=== PATIENT | male | born 1975 | race Caucasian/White ===

== ENCOUNTER → 2016-09-02 | Outpatient (REF) | payer BC | LOC: M LAB REF 19:52 | PROVIDERS: ATTEND Physician Assistant | DX: M71.122 Other infective bursitis, left elbow (principal) ==

== ENCOUNTER → 2019-04-18 | Outpatient (CLI) | payer BC, OTHER ==
--- NOTE | 2019-04-20 19:47 | SLEEPCENT ---
DATE OF PROCEDURE: 04/18/2019 ORDERED BY: KEISHA Abbott Nocturnal polysomnography was performed for evaluation of sleep physiology in this patient with a history of excessive somnolence and nonrestorative sleep. 7 hours and 51 minutes of data were reviewed. There were 331 minutes of sleep identified. Sleep latency was prolonged at 26.5 minutes. Rapid eye movement (REM) latency was delayed at 378 minutes. Sleep architecture improved late in the study after interventions were made. Overall sleep efficiency 71.1%. The electrocardiogram showed a sinus rhythm with an average heart rate of 70 beats per minute. EEG showed normal waveforms for awake and sleep. There were 195 respiratory events identified 10 seconds in duration or greater for an apnea-hypopnea index of 35.3. Having clearly established the presence of obstructive sleep apnea syndrome early in the test, study was stopped at midnight for the application of pressure therapy. The patient was fit with a ResMed Air Fit F20 full face mask of large size, 4 cm of water pressure were applied to the circuit and the lights were extinguished. Throughout the remaining hours of testing, pressure titration was performed to an optimal pressure of +10. Limb activity was also noted in the EMG leads. However, this improved after pressure titration was performed. Limb movement arousal index was 4.2. IMPRESSION: Obstructive sleep apnea syndrome (G47.33). Apnea-hypopnea index 35.3. RECOMMENDATIONS: Nightly use of pressure therapy 10 cm of water.
== END ==
LOC: M SLEEP 20:00
PROVIDERS: ATTEND Nurse Practitioner Family
DX: G47.33 Obstructive sleep apnea (adult) (pediatric) (principal)

== ENCOUNTER → 2019-12-16 | Outpatient (CLI) | payer OTHER ==
--- NOTE | 2019-12-16 16:30 | REP ---
INDICATION: IMPINGMENT SYNDROME OF R . COMPARISON: None. TECHNIQUE: Coronal oblique T1, T2 fat sat, sagittal oblique T2 fat sat, axial T2 fat sat, gradient echo. FINDINGS: Rotator cuff: Scattered ill-defined high signal on T2 weighted images in the supraspinatus tendon is compatible with diffuse tendinopathy/tendinitis. There is a focal full-thickness partial tear at the anterior leading edge of the distal supraspinatus tendon. Acromioclavicular joint: There are moderate hypertrophic degenerative changes with a tiny amount of fluid in the joint. A couple of small subcortical cysts are seen in the distal end of the clavicle. Acromion: Type 2 Biceps Tendon: In bicipital groove, no tenosynovitis. Hill Sach's deformity: None. Deltoid muscle: No abnormal signal. Biceps labral complex: Mild fraying. Labrum: No tear visualized. Cartilage: No defects visualized. Bone marrow: No marrow edema. Joint fluid: No effusion. There is a tiny amount of fluid in the subacromial/ subdeltoid bursae. IMPRESSION: Supraspinatus tendinopathy/tendinitis with a focal full-thickness partial tear at the anterior leading edge of the distal supraspinatus tendon. Moderate hypertrophic degenerative changes acromioclavicular joint. Type 2 acromion. Mild fraying of the biceps labral complex. No definite labral tear. <Electronically signed by Kofi Dumont > 12/16/19 0410
--- NOTE | 2019-12-16 16:37 | REP ---
INDICATION: IMPINGMENT SYNDROME OF R . COMPARISON: None. TECHNIQUE: Coronal oblique T1, T2 fat sat, sagittal oblique T2 fat sat, axial T2 fat sat, gradient echo. FINDINGS: Rotator cuff: Scattered ill-defined high signal on T2 weighted images in the supraspinatus and subscapularis tendons compatible with tendinopathy/tendinitis. There is a full-thickness partial tear at the anterior leading edge of the distal supraspinatus tendon. There also appears to be a partial bursal surface tear of the supraspinatus tendon beneath the acromion. Acromioclavicular joint: There are moderate hypertrophic degenerative changes with tiny amount of fluid in the joint. There is moderate subacromial spurring. Acromion: Type 2 Biceps Tendon: In bicipital groove, no tenosynovitis. Hill Sach's deformity: None. Deltoid muscle: No abnormal signal. Biceps labral complex: Mild fraying Labrum: No tear visualized. Cartilage: No defects visualized. Bone marrow: No bone marrow edema visualized. There are few tiny subcortical cysts in the superolateral humeral head. Joint fluid: No effusion. There is mild to moderate fluid in the subacromial/subdeltoid bursae. IMPRESSION: Supraspinatus and subscapularis tendinopathy/tendinitis. Full-thickness partial tear anterior leading edge of the distal supraspinatus tendon. Partial bursal surface tear supraspinatus tendon. Moderate hypertrophic degenerative changes of the acromioclavicular joint. Type 2 acromion. Mild fraying of the biceps labral complex. No evidence of a labral tear. Mild to moderate fluid in the subacromial/subdeltoid bursae. <Electronically signed by Kofi Dumont > 12/16/19 [id number]
== END ==
LOC: M RAD 14:49
PROVIDERS: ATTEND Orthopaedic Surgery Sports Medicine
DX: M75.41 Impingement syndrome of right shoulder (principal)

== ENCOUNTER → 2020-06-14 | Outpatient (REF) | payer OTHER | LOC: M LAB REF 17:12 | PROVIDERS: ATTEND Family Medicine | DX: B35.3 Tinea pedis (principal) ==

== ENCOUNTER → 2020-06-20 | Outpatient (CLI) | payer OTHER ==
[~2020-06-20] MED LIST: ISOVUE-370 76% 100ML VIAL As Ordered ONE
--- NOTE | 2020-06-20 11:20 | REPVR ---
PROCEDURE INFORMATION: Exam: CT Maxillofacial With Contrast Exam date and time: 06/20/2020 10:57 AM Age: 45 years old Clinical indication: Jaw pain; Additional info: RT jaw pain post extraction, eval for abcess/osteo TECHNIQUE: Imaging protocol: Computed tomography images of the face with intravenous contrast. Radiation optimization: All CT scans at this facility use at least one of these dose optimization techniques: automated exposure control; mA and/or kV adjustment per patient size (includes targeted exams where dose is matched to clinical indication); or iterative reconstruction. Contrast material: ISOVUE 370; Contrast volume: 75 ml; Contrast route: INTRAVENOUS (IV); COMPARISON: No relevant prior studies available. FINDINGS: Orbital cavity: Orbits are normal. Globes are unremarkable. Bones/joints: There are posterior mandibular resection sockets bilaterally. On the right, there is a focal nondisplaced fracture traversing the lateral margin of the posterior mandible at the resection site, with focal periosteal reaction. Paranasal sinuses: Normal. No air-fluid levels. Soft tissues: There is focal expansion of the right masseter muscle at the level of the extraction site, potentially postoperative in nature. Myositis is a consideration in the appropriate clinical setting. IMPRESSION: 1. Focal fracture along the lateral margin of the right mandibular resection socket. Underlying infection is a consideration. 2. Expansion of the right masseter muscle, potentially myositis. No drainable soft tissue fluid collection to suggest abscess. Electronically signed by: Marilee Chase On 06/20/2020 11:20:19 AM
== END ==
LOC: M RAD 10:31
PROVIDERS: ATTEND Physician Assistant
DX: S02.601A Fracture of unspecified part of body of right mandible, initial encounter for closed fracture (principal); X58.XXXA Exposure to other specified factors, initial encounter; Y92.9 Unspecified place or not applicable; Y99.9 Unspecified external cause status; R68.84 Jaw pain
CPT/HCPCS: 70487; Q9967

== ENCOUNTER → 2020-06-27 | Outpatient (REF) | payer OTHER ==
[2020-06-27 11:00] LABS: BASO # 0.1 10^3/uL (0.0-0.2); BASO % 0.7 % (0.0-1.0); EOS # 0.2 10^3/uL (0.0-0.5); EOS % 1.6 % (0.0-3.0); HEMATOCRIT 49.9 % (42.0-52.0); LYMPH # 4.1 10^3/uL (1.5-5.0); LYMPH % 27.6 % (24.0-44.0); MEAN CORPUSCULAR HEMOGLOBIN 29.6 pg (27.0-33.0); MEAN CORPUSCULAR HGB CONC 32.1 g/dl (32.0-36.5); MEAN CORPUSCULAR VOLUME 92.4 fl (80.0-96.0); MONO % 6.7 % (2.0-8.0); NEUTROPHILS # 9.2 10^3/uL (1.5-8.5); NEUTROPHILS % 62.6 % (36.0-66.0); PLATELET COUNT, AUTOMATED 324 10^3/uL (150-450); WHITE BLOOD COUNT 14.7 10^3/uL (4.0-10.0)
[2020-06-27 11:27] LABS: ALBUMIN 3.9 GM/DL (3.2-5.2); ALT/SGPT 38 U/L (12-78); BILIRUBIN,TOTAL 0.2 MG/DL (0.2-1.0); BLOOD UREA NITROGEN 23 MG/DL (7-18); CALCIUM LEVEL 8.8 MG/DL (8.5-10.1); CARBON DIOXIDE LEVEL 26 MEQ/L (21-32); CHLORIDE LEVEL 105 MEQ/L (98-107); CREATININE FOR GFR 0.91 MG/DL (0.70-1.30); GLOMERULAR FILTRATION RATE > 60.0 (>60); GLUCOSE, FASTING 95 MG/DL (70-100); POTASSIUM SERUM 4.4 MEQ/L (3.5-5.1); SODIUM LEVEL 140 MEQ/L (136-145); TOTAL PROTEIN 7.4 GM/DL (6.4-8.2)
[2020-06-27 11:32] LABS: ERYTHROCYTE SEDIMENTATION RATE 2 mm/hr (0-15)
== END ==
LOC: M SFHCPLAZ 08:25
PROVIDERS: ATTEND Internal Medicine Infectious Disease
DX: M27.2 Inflammatory conditions of jaws (principal)

== ENCOUNTER 2020-07-03 14:27 | Outpatient (CLI) | payer OTHER ==
[2020-07-03] MEDS ORDERED: AMPICILLIN SOD/SULBACTAM SOD 3 GM in D5W MINI-BAG PLUS 100 ML IV ONE (14:30)
[2020-07-03 15:35] VITALS: BP 121/81
[2020-07-03] MEDS ORDERED: SODIUM CHLORIDE 0.9% INJ 10 ML SYR IV PRN (16:05)
[2020-07-03 16:40] VITALS: BP 133/81
[2020-07-03] MEDS ORDERED: SODIUM CHLORIDE 0.9% INJ 10 ML SYR IV SCH (18:00)
== END 2020-07-03 16:40 | disposition home or self-care (01) ==
LOC: M INFU 14:27
PROVIDERS: ATTEND Internal Medicine Infectious Disease
DX: M27.2 Inflammatory conditions of jaws (principal)
CPT/HCPCS: 96365; J1642

== ENCOUNTER → 2020-07-03 | Outpatient (CLI) | payer OTHER ==
[~2020-07-03] MED LIST changes: -ISOVUE-370 76% 100ML VIAL As Ordered ONE; +LIDOCAINE 1% MDV 20ML VIAL As Ordered ONE
[2020-07-03 15:18] VITALS: BP 144/70
--- NOTE | 2020-07-03 16:58 | REP ---
PROCEDURE NAME: PICC LINE INSERTION W/SITERITE CLINICAL INFORMATION: PICC LINES. COMPARISON: None. PROCEDURE DESCRIPTION: The procedure was performed by ROYCE Olson, under the direct supervision of Dr. Causey. The risks and benefits of the procedure were explained to the patient and an informed consent was obtained both verbally and written. Directly prior to the start of the procedure a formal time-out was completed in the procedure room. The left basilic vein was localized using ultrasound guidance. The skin was prepped and draped in sterile fashion. One mL of 1% lidocaine 10 mg/mL was used as a local anesthetic. Using ultrasound guidance the left basilic vein was cannulated, and a 0.018 guidewire was inserted and advanced to the level of SVC using fluoroscopic guidance. The needle was removed and a 4.5 Mongolian dilator and peel-away sheath was inserted over the guidewire. A 4.5 Mongolian single lumen catheter was cut to a length of 50 cm. The dilator was removed and the catheter was inserted over the guidewire with the tip ending at the level of the SVC. The peel-away sheath was removed and the catheter was flushed with heparinized saline as per hospital protocol. The catheter was affixed to the skin and a sterile dressing was applied. The patient tolerated the procedure well and there were no immediate complications. CONCLUSION: PICC line insertion into the left basilic vein. 0.1 minutes of fluoroscopy time was utilized for this procedure. Some fluoroscopic images are performed with last image hold technology. These images require no additional radiation. <Electronically signed by Helen Whalen > 07/03/20 1646 <Electronically signed by Cedric Causey > 07/03/20 3103
== END ==
LOC: M IRPRO 14:20
PROVIDERS: ATTEND Internal Medicine Infectious Disease
DX: M86.9 Osteomyelitis, unspecified (principal); M27.2 Inflammatory conditions of jaws
CPT/HCPCS: 36571; 76937; C1751; J1642; J1644

== ENCOUNTER → 2020-07-11 | Outpatient (REF) | payer OTHER ==
[2020-07-11 14:28] LABS: BASO # 0.1 10^3/uL (0.0-0.2); BASO % 0.6 % (0.0-1.0); EOS # 0.5 10^3/uL (0.0-0.5); EOS % 5.5 % (0.0-3.0); HEMATOCRIT 41.8 % (42.0-52.0); HEMOGLOBIN 13.5 g/dl (13.5-17.5); LYMPH # 2.3 10^3/uL (1.5-5.0); LYMPH % 24.2 % (24.0-44.0); MEAN CORPUSCULAR HEMOGLOBIN 29.9 pg (27.0-33.0); MEAN CORPUSCULAR HGB CONC 32.3 g/dl (32.0-36.5); MEAN CORPUSCULAR VOLUME 92.7 fl (80.0-96.0); MONO # 0.7 10^3/uL (0.0-0.8); NEUTROPHILS # 5.9 10^3/uL (1.5-8.5); NEUTROPHILS % 62.3 % (36.0-66.0); PLATELET COUNT, AUTOMATED 267 10^3/uL (150-450); RED BLOOD COUNT 4.51 10^6/uL (4.30-6.10); WHITE BLOOD COUNT 9.4 10^3/uL (4.0-10.0)
[2020-07-11 14:47] LABS: ERYTHROCYTE SEDIMENTATION RATE 10 mm/hr (0-15)
[2020-07-11 15:00] LABS: ALBUMIN 3.7 GM/DL (3.2-5.2); ALT/SGPT 33 U/L (12-78); BILIRUBIN,TOTAL 0.3 MG/DL (0.2-1.0); BLOOD UREA NITROGEN 20 MG/DL (7-18); C REACTIVE PROTEIN QUANTITATIV 0.46 MG/DL (0.00-0.30); CARBON DIOXIDE LEVEL 27 MEQ/L (21-32); CHLORIDE LEVEL 108 MEQ/L (98-107); CREATININE FOR GFR 0.83 MG/DL (0.70-1.30); GLOMERULAR FILTRATION RATE > 60.0 (>60); GLUCOSE, FASTING 112 MG/DL (70-100); SODIUM LEVEL 141 MEQ/L (136-145); TOTAL PROTEIN 6.6 GM/DL (6.4-8.2)
== END ==
LOC: M LAB REF 13:44
PROVIDERS: ATTEND Internal Medicine Infectious Disease
DX: M27.2 Inflammatory conditions of jaws (principal); A49.01 Methicillin susceptible Staphylococcus aureus infection, unspecified site

== ENCOUNTER → 2020-11-25 | Outpatient (CLI) | payer OTHER ==
[~2020-11-25] MED LIST changes: -LIDOCAINE 1% MDV 20ML VIAL As Ordered ONE; +PROP120C PO; +VENL150C43 PO
== END ==
LOC: M LABSMTC 09:11
PROVIDERS: ATTEND Anesthesiology
DX: Z11.52 Encounter for screening for COVID-19 (principal); Z20.822 Contact with and (suspected) exposure to COVID-19

== ENCOUNTER 2020-11-30 06:53 | Day surgery (SDC) | payer OTHER ==
[~2020-11-30] VITALS: Ht 180.3 cm; Wt 108.4 kg
[~2020-11-30 06:53] MED LIST changes: +NS 1,000 ML IV ONE
--- OUTSIDE RECORDS SUMMARY | 2020-11-30 06:56 | CCD | Continuity of Care Document ---
Author Author Manuel LOWERY Organization Unknown Address [address] [facility] [address] [place] [address] Phone [phone] Care Team Providers Care Director Of Pharmacy Name Role Phone Lilly Swain D.O. AUTM Diogo Blanchard DR. AUTM [phone] Warner Gilliland M.D. AUTM [phone] Carlito Skinner M.D. AUTM [phone] Problems Active Problems Provider Date Tremor PATRICK Ely Onset: 12/09/2019 Anxiety PATRICK Ely Onset: 12/09/2019 Tobacco user PATRICK Ely Onset: 12/09/2019 Social History Type Date Description Comments Sex Unknown ETOH Use Currently consumes alcohol 2x pe r week at most Tobacco Use Start: Unknown Heavy tobacco smoker (more than 10 cigarettes/day) 1 pack/day Recreational Drug Use Denies Drug Use Smoking Status Reviewed: 11/13/20 Heavy tobacco smoker (more than 10 cigarettes/day) 1 pack/day Sun Exposure Does not use sunscreen Seat Belt/Car Seat Never uses seat belt Allergies, Adverse Reactions, Alerts Active Allergies Criticality Reaction | Severity Comments Date Lyrica Unable to assess criticality 10/22/2019 Bupropion Unable to assess criticality Chest discomfort | Modera te 01/13/2020 Medications Active Medications SIG Qnty Indications Ordering Provide r Date Bilateral Shoe Orthotics. Dx: bilateral acquired flat feet. Use as directed. M21.40 Lilly Swain D.O. 11/13/2020 Chantix Starting Month Bhaskar 0.5mg X 11 & 1 mg X 42 Tablets 1 tab by mouth as directed 1pack F17.210 Aamir MichelOSulaiman 11/13/2020 Propranolol HCL ER 120mg Caps ER 2 4HR 1 by mouth every day 90caps Nickie Michel.O. Venlafaxine HCL ER 150mg Caps ER 2 4HR 1 by mouth every day 90caps Aamir MichelO. History Medications Nystatin 806751Oatm/ML Suspension 5 milliliters by mouth q6hr swish around mouth for 2 minutes and then swallow 473ml B37.0 Aamir MichelO. 08/22/2020 - 11/13/2020 Clobetasol Propionate E 0.05% Crea m apply to rash hands and feet leg twice daily for seven days as needed for flares 60gm L30.1 Aamir MichelO. 07/18/2020 - 11/13/2020 Prednisone 10mg Tablets 4 tablets daily for 5 days then 3 tablets for 3 days then 2 tablets for 2 days then 1 tab daily for 2 days, then stop qs L30.1 Aamir MichelO. 07/18/2020 - 08/22/2020 Hydrocodone-Acetaminophen 7.5-325mg Tablets 1 by mouth every 6 hours as needed for severe pain istop # 1 [id number] 28tabs K08.89 Aamir MichelO. 06/20/2020 - 07/18/2020 Gabapentin 300mg Capsules take one capsule by mouth three times daily as needed 60caps K08.89 Aamir DallasO. 06/20/2020 - 07/18/2020 Clotrimazole/Betamethasone Dipropionate 1-0.05% Cream apply to rash on the plantar aspect of r ight twice daily until resolved 45gm B35.3 Aamir MichelOSulaiman 06/14 - 11/13/2020 Doxycycline Monohydrate 100mg Caps ules 1 capsule by mouth twice a day for 10 days 20caps B35.3 Lilly Swain D.O. 06/14/2020 - 07/18/2020 Prednisone 20mg Tablets 1 tab by mouth daily x 5 days 5tabs B35.3 Lilly Swain D.O. 06/14 - 06/20/2020 Medications Administered in Office Medication SIG Qnty Indications Ordering Provider Date Injection Ketorolac Tromethamine Per 15 MG (Toradol) Injection PATRICK Loyola 06/20/2020 Immunizations Description No Information Available Vital Signs Date Vital Result Comment 11/13/2020 2:38pm BP Systolic 124 mmHg BP Diastolic 70 mmHg Height 70.2 inches 5'10.20" Weight 255.50 lb BMI (Body Mass Index) 36.4 kg/m2 Heart Rate 77 /min Respiratory Rate 14 /min Body Temperature 97.4 F O2 % BldC Oximetry 96 % [place] Body Weight 166 lb 08/22/2020 3:57pm BP Systolic 128 mmHg BP Diastolic 68 mmHg Height 70.2 inches 5'10.20" Weight 252.12 lb BMI (Body Mass Index) 36.0 kg/m2 Heart Rate 83 /min Respiratory Rate 14 /min Body Temperature 97.8 F O2 % BldC Oximetry 98 % [place] Body Weight 166 lb Results Test Acquired Date Facility Test Result H/L Range Note Laboratory test finding 06/14/[address] [id number] [phone] Wound Culture FULL REPORT IN L <SEE NOTE> Normal 1 1 FULL REPORT IN LAB NOTES ([facility] and [facility]). ORGANISM 1: STAPHYLOCOCCUS AUREUS QUANTITY OF GROWTH MODERATE ORGANISM 2: STAPHYLOCOCCUS SP COAG NEG QUANTITY OF GROWTH MODERATE ORGANISM 3: STAPHYLOCOCCUS CAPITIS QUANTITY OF GROWTH FEW ORGANISM 1: STAPHYLOCOCCUS AUREUS ORGANISM 2: STAPHYLOCOCCUS SP COAG NEG ORGANISM 3: STAPHYLOCOCCUS CAPITIS STAPHYLOCOCCUS AUREUS: REACTION ICR (INDUCIBLE CC RESISTANCE) IV ICR TEST RESULT TETRACYCLINE PO 250 mg qid <=1 S PENICILLIN G IV 1 mu q6H >=0.5 R PENICILLIN G IV 1 mu q6h >=0.5 R PENICILLIN G PO 250mg q6h fasting >=0.5 R TRIMETHOPRIM/SULFAMETHOXAZOLE IV 160mg TMP & 800mg SMXq6h <=10 S TRIMETHOPRIM/SULFAMETHOXAZOLE PO Bactrim DS Bid <=10 S ERYTHROMYCIN IV 500mg q6h <=0.25 S ERYTHROMYCIN PO 500mg q6h <=0.25 S GENTAMICIN IV 80mg q8h <=0.5 S CLINDAMYCIN IV 600mg q6h 0.25 S CLINDAMYCIN PO 150mg q6h 0.25 S NITROFURANTOIN PO 100mg BID <=16 S OXACILLIN IV 500mg q6h 1 S VANCOMYCIN IV 500mg q8h 1 S LINEZOLID (ZYVOX) IV 600MG Q12HR 2 S LINEZOLID (ZYVOX) PO 600MG Q12HR 2 S An isolate with a (+) POSITIVE ICR test is considered CLINDAMYCIN RESISTANT; however, clindamycin may still be effective in some patients. An isolate with a (-) NEGATIVE ICR test is considered CLIDAMYCIN SENSITIVE. Oxacillin result predicts susceptibility to all penicillinase-stable penicillins (Nafcillin, Dicloxacilin), Cephalosporins, Carbapenems, Amoxicillin/Clavulanate & Ampicillin/Sulbactam per CSLI standards. STAPHYLOCOCCUS SP COAG NEG: REACTION ICR (INDUCIBLE CC RESISTANCE) IV ICR TEST RESULT TETRACYCLINE PO 250 mg qid >=16 R PENICILLIN G IV 1 mu q6h <=0.03 R PENICILLIN G PO 250mg q6h fasting <=0.03 R TRIMETHOPRIM/SULFAMETHOXAZOLE IV 160mg TMP & 800mg SMXq6h <=10 S TRIMETHOPRIM/SULFAMETHOXAZOLE PO Bactrim DS Bid <=10 S ERYTHROMYCIN IV 500mg q6h >=8 R ERYTHROMYCIN PO 500mg q6h >=8 R GENTAMICIN IV 80mg q8h <=0.5 S CLINDAMYCIN IV 600mg q6h 0.25 S CLINDAMYCIN PO 150mg q6h 0.25 S NITROFURANTOIN PO 100mg BID <=16 S OXACILLIN IV 500mg q6h <=0.25 S VANCOMYCIN IV 500mg q8h 1 S LINEZOLID (ZYVOX) IV 600MG Q12HR 1 S LINEZOLID (ZYVOX) PO 600MG Q12HR 1 S An isolate with a (+) POSITIVE ICR test is considered CLINDAMYCIN RESISTANT; however, clindamycin may still be effective in some patients. An isolate with a (-) NEGATIVE ICR test is considered CLIDAMYCIN SENSITIVE. Oxacillin result predicts susceptibility to all penicillinase-stable penicillins (Nafcillin, Dicloxacilin), Cephalosporins, Carbapenems, Amoxicillin/Clavulanate & Ampicillin/Sulbactam per CSLI standards. STAPHYLOCOCCUS CAPITIS: REACTION ICR (INDUCIBLE CC RESISTANCE) IV ICR TEST RESULT TETRACYCLINE PO 250 mg qid >=16 R PENICILLIN G IV 1 mu q6h 0.25 R PENICILLIN G PO 250mg q6h fasting 0.25 R TRIMETHOPRIM/SULFAMETHOXAZOLE IV 160mg TMP & 800mg SMXq6h <=10 S TRIMETHOPRIM/SULFAMETHOXAZOLE PO Bactrim DS Bid <=10 S ERYTHROMYCIN IV 500mg q6h >=8 R ERYTHROMYCIN PO 500mg q6h >=8 R GENTAMICIN IV 80mg q8h <=0.5 S CLINDAMYCIN IV 600mg q6h <=0.12 I CLINDAMYCIN PO 150mg q6h <=0.12 I NITROFURANTOIN PO 100mg BID <=16 S OXACILLIN IV 500mg q6h <=0.25 S VANCOMYCIN IV 500mg q8h 1 S LINEZOLID (ZYVOX) IV 600MG Q12HR 4 S LINEZOLID (ZYVOX) PO 600MG Q12HR 4 S An isolate with a (+) POSITIVE ICR test is considered CLINDAMYCIN RESISTANT; however, clindamycin may still be effective in some patients. An isolate with a (-) NEGATIVE ICR test is considered CLIDAMYCIN SENSITIVE. Oxacillin result predicts susceptibility to all penicillinase-stable penicillins (Nafcillin, Dicloxacilin), Cephalosporins, Carbapenems, Amoxicillin/Clavulanate & Ampicillin/Sulbactam per CSLI standards. Procedures Date Code Description Status 11/13/2020 00024 Smoking & Tobacco Ce ssation Counseling Visit Intermediate 3-10Min Completed 11/13/2020 76808 Office/Outpatient Established Lo w MDM 20-29 Min Completed 08/22/2020 48688 Preventive Visit Est 40-64 Yrs C ompleted 08/22/2020 78136 Office/Outpatient Established Lo w MDM 20-29 Min Completed 07/18/2020 14199 Office/Outpatient Established Mo d MDM 30-39 Min Completed 06/20/2020 55935 Office/Outpatient Established Mo d MDM 30-39 Min Completed 06/14/2020 36758 Office/Outpatient Established Mo d MDM 30-39 Min Completed Medical Devices Description No Information Available Encounters Type Date Location Provider Dx Diagnosis Office Visit 11/13/2020 2:40p [facility] PATRICK Ely F17.210 Nicotine dependence, cigaret dougie, uncomplicated M21.40 Flat foot [pes planus] (acqu ired), unspecified foot Office Visit 08/22/2020 4:00p [facility] Lilly Swain D.O. Z00.01 Encounter for general adult medical exam w abnormal findings F17.210 Nicotine dependence, cigaret dougie, uncomplicated G47.33 Obstructive sleep apnea (marija lt) (pediatric) G25.0 Essential tremor F41.1 Generalized anxiety disorder L40.9 Psoriasis, unspecified B37.0 Candidal stomatitis Z12.11 Encounter for screening for malignant neoplasm of colon Z80.0 Family history of malignant neoplasm of digestive organs Office Visit 07/18/2020 3:40p [facility] Lilly Swain D.O. M27.2 Inflammatory conditions of j kristie L30.1 Dyshidrosis [pompholyx] L84 Corns and callosities L23.89 Allergic contact dermatitis due to other agents Office Visit 06/20/2020 9:00a [facility] PATRICK Ely L03.115 Cellulitis of right lower li mb K08.89 Other specified disorders of teeth and supporting structures Office Visit 06/14/2020 2:30p [facility] Lilly Swain D.O. B35.3 Tinea pedis L40.9 Psoriasis, unspecified Assessments Date Code Description Provider 11/13/2020 F17.210 Nicotine dependence, cigarettes, uncomplicated PATRICK Ely 11/13/2020 M21.40 Flat foot [pes planus] (acquired ), unspecified foot PATRICK Ely 08/22/2020 Z00.01 Encounter for genera l adult medical examination with abnormal findings Lilly Swain D.O. 08/22/2020 F17.210 Nicotine dependence, cigarettes, uncomplicated Nickie Ovalle.OSulaiman 08/22/2020 G47.33 Obstructive sleep apnea (adult) (pediatric) Lilly Islas D.O. 08/22/2020 G25.0 Essential tremor Lilly ordonez, D.O. 08/22/2020 F41.1 Generalized anxiety disorder Judy l Wiliam, D.O. 08/22/2020 L40.9 Psoriasis, unspecified Lilly Callaway, D.O. 08/22/2020 B37.0 Candidal stomatitis Lilly Thompson, D.O. 08/22/2020 Z12.11 Encounter for screening for shea gnant neoplasm of colon Lilly Swain, D.O. 08/22/2020 Z80.0 Family history of malignant neop lasm of digestive organs Lilly Swain, D.O. 07/18/2020 M27.2 Inflammatory conditions of jaws Lilly Swain, D.O. 07/18/2020 L30.1 Dyshidrosis [pompholyx] Lilly Loza, D.O. 07/18/2020 L84 Corns and callosities Lilly Lame Salo, D.O. 07/18/2020 L23.89 Allergic contact dermatitis due to other agents Lilly Islas, D.O. 06/20/2020 L03.115 Cellulitis of right lower limb S PATRICK Townsend 06/20/2020 K08.89 Other specified disorders of kerry th and supporting structures PATRICK Ely 06/14/2020 B35.3 Tinea pedis Lilly noble, D.O. 06/14/2020 L40.9 Psoriasis, unspecified Lilly Callaway, D.O. Plan of Treatment Future Appointment(s):* 12/25/2020 2:20 pm - PATRICK Ely at [facility] * 02/22/2021 3:00 pm - PATRICK Ely at [facility] Functional Status Description No Information Available Mental Status Description No Information Available Referrals Refer to Reason for Referral Status Appt Date Carlito Skinner M.D. This is a 45 year old male w ith family history of colon cancer in his father was of metastatic disease at age 73. I think he would benefit from screening colonoscopy. Please evaluate and treat. Sent 09/06/2020 [address] [facility] [address] [place], [place] [id number] [phone] Warner Gilliland M.D. this is a 45 year old male w ith dyshydrosis and severe cracking with callus on the right foot. I do not think that this will heal without debridement and would appreciate your help with this patient. 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 Sent 08/22/2020 [facility] [address] [facility] [address] [place], [place] [id number] [phone]
--- OUTSIDE RECORDS SUMMARY | 2020-11-30 06:56 | CCD | Continuity of Care Document ---
Author Author Manuel LOWERY Organization Unknown Address [address] [facility], [place], [facility] [address] [place] [address] Phone [phone] Care Team Providers Care Business Development Director Name Role Phone Lilly Swain D.O. AUTM [phone] AUTM [phone] Warner Gilliland M.D. AUTM [phone] Carlito Skinner M.D. AUTM [phone] Problems Active Problems Provider Date Tremor PATRICK Ely Onset: 12/09/2019 Anxiety PATRICK Ely Onset: 12/09/2019 Tobacco user PATRICK Ely Onset: 12/09/2019 Social History Type Date Description Comments Sex Unknown ETOH Use Currently consumes alcohol 2x pe r week at most Tobacco Use Start: Unknown Heavy tobacco smoker (more than 10 cigarettes/day) 1 pack/day Recreational Drug Use Denies Drug Use Smoking Status Reviewed: 08/22/20 Heavy tobacco smoker (more than 10 cigarettes/day) [...] day 90caps Aamir MichelO. History Medications Nystatin 648334Wiot/ML Suspension 5 milliliters by mouth q6hr swish [...] needed for severe pain istop # 1 [id number] 28tabs K08.89 Aamir MichelO. 06/20/2020 - 07/18/2020 Gabapentin 300mg Capsules take one capsule by mouth three times daily as needed 60caps K08.89 Aamir DallasO. 06/20/2020 - 07/18/2020 Clotrimazole/Betamethasone Dipropionate 1-0.05% Cream apply to rash on the plantar aspect of r ight twice daily until resolved 45gm B35.3 Aamir MihcelOSulaiman 06/14 - 11/13/2020 Doxycycline Monohydrate 100mg Caps [...] F O2 % BldC Oximetry 96 % [place] Body Weight 166 lb 08/22/2020 3:57pm BP Systolic 128 mmHg BP Diastolic 68 mmHg Height 70.2 inches 5'10.20" Weight 252.12 lb BMI (Body Mass Index) 36.0 kg/m2 Heart Rate 83 /min Respiratory Rate 14 /min Body Temperature 97.8 F O2 % BldC Oximetry 98 % [place] Body Weight 166 lb Results Test Acquired Date Facility Test Result H/L Range Note Laboratory test finding 06/14/[address] [id number] [phone] Wound Culture FULL REPORT IN L <SEE [...] CSLI standards. Procedures Date Code Description Status 08/22/2020 78283 Preventive Visit Est 40-64 Yrs C ompleted 08/22/2020 01541 Office/Outpatient Established Lo w MDM 20-29 Min Completed 07/18/2020 46266 Office/Outpatient Established Mo d MDM 30-39 Min Completed 06/20/2020 76859 Office/Outpatient Established Mo d MDM 30-39 Min Completed 06/14/2020 89996 Office/Outpatient Established Mo d MDM 30-39 Min Completed Medical Devices Description No Information Available Encounters Type Date Location Provider Dx Diagnosis Office Visit 08/22/2020 4:00p [facility] Lilly Swain, D.O. Z00.01 Encounter for general adult medical exam w abnormal findings F17.210 Nicotine dependence, cigaret dougie, uncomplicated G47.33 Obstructive sleep apnea (marija lt) (pediatric) G25.0 Essential tremor F41.1 Generalized anxiety disorder L40.9 Psoriasis, unspecified B37.0 Candidal stomatitis Z12.11 Encounter for screening for malignant neoplasm of colon Z80.0 Family history of malignant neoplasm of digestive organs Office Visit 07/18/2020 3:40p [facility] Lilly Swain D.O. M27.2 Inflammatory conditions of j kristie L30.1 Dyshidrosis [pompholyx] L84 Corns and callosities L23.89 Allergic contact dermatitis due to other agents Office Visit 06/20/2020 9:00a [facility] PATRICK Ely L03.115 Cellulitis of right lower li mb K08.89 Other specified disorders of teeth and supporting structures Office Visit 06/14/2020 2:30p [facility] Lilly Swain, D.O. B35.3 Tinea pedis L40.9 Psoriasis, unspecified Assessments Date Code Description Provider 11/13/2020 F17.210 Nicotine dependence, cigarettes, uncomplicated PATRICK Ely 11/13/2020 M21.40 Flat foot [pes planus] (acquired ), unspecified foot PATRICK Ely 08/22/2020 Z00.01 Encounter for genera l adult medical examination with abnormal findings Lilly Swain, D.O. 08/22/2020 F17.210 Nicotine dependence, cigarettes, uncomplicated Lilly Islas, D.O. 08/22/2020 G47.33 Obstructive sleep apnea (adult) (pediatric) Lilly Islas D.O. 08/22/2020 G25.0 Essential tremor Lilly ordonez D.O. 08/22/2020 F41.1 Generalized anxiety disorder Judy leticia Swain D.O. 08/22/2020 L40.9 Psoriasis, unspecified Lilly Callaway D.O. 08/22/2020 B37.0 Candidal stomatitis Lilly Thompson D.O. 08/22/2020 Z12.11 Encounter for screening for shea gnant neoplasm of colon Lilly Swain D.O. 08/22/2020 Z80.0 Family history of malignant neop lasm of digestive organs Lilly Swain D.O. 07/18/2020 M27.2 Inflammatory conditions of jaws Lilly Swain D.O. 07/18/2020 L30.1 Dyshidrosis [pompholyx] Lilly Loza D.O. 07/18/2020 L84 Corns and callosities Lilly Leong D.O. 07/18/2020 L23.89 Allergic contact dermatitis due to other agents Lilly Islas D.O. 06/20/2020 L03.115 Cellulitis of right lower limb S PATRICK Townsend 06/20/2020 K08.89 Other specified disorders of kerry th and supporting structures PATRICK Ely 06/14/2020 B35.3 Tinea pedis Lilly noble D.O. 06/14/2020 L40.9 Psoriasis, unspecified Lilly Callaway, D.O. Plan of Treatment Future Appointment(s):* 12/25/2020 2:20 pm - PATRICK Ely at [facility] * 02/22/2021 3:00 pm - PATRICK lEy at [facility] 11/13/2020 - PATRICK Ely* F17.210 Nicotine dependence, cigarettes, uncomplicated* New Medication:* Chantix Starting Month Bhaskar 0.5 mg X 11 & 1 mg X 42 - 1 tab by mouth as directed * Comments:* We will try chantix to help you quit smoking. Call if there is any issue with the medication, or other concerns. * Follow up:* 6 weeks with me. * M21.40 Flat foot [pes planus] (acquired), unspecified foot* New Medication:* Bilateral Shoe Orthotics. - Dx: bilateral acquired flat feet. Use as directed. * Comments:* We will write you a prescription for orthotics. Call if there is any issue with the prescription, or other issues. Functional Status Description No Information Available Mental Status Description No Information Available Referrals Refer to Reason for Referral Status Appt Date Carlito Skinner M.D. This is a 45 year old male w ith family history of colon cancer in his father was of metastatic disease at age 73. I think he would benefit from screening colonoscopy. Please evaluate and treat. Sent 09/06/2020 [address] [facility] [address] [place] [address] [phone] Warner Gilliland M.D. this is a 45 [...] has improved. Sent 08/22/2020 [facility] [address] [facility] [address] [place], [place] [id number] [phone]
--- OUTSIDE RECORDS SUMMARY | 2020-11-30 06:57 | CCD | Continuity of Care Document ---
Author Author Manuel JOHNSON OR Organization Unknown Address [address] [facility], [address] [place] [address] Phone [phone] Care Team Providers Care Efficiency Clerk Name Role Phone AUTM Unavailable Lilly Swain D.O. AUTM AUTM Unavailable Problems Description No Information Available Social History Type Date Description Comments Sex Unknown ETOH Use Rarely consumes alcohol Tobacco Use Start: 02/10/99 Patient is a current smoker, smo kes every day 1 PPD Recreational Drug Use Denies Drug Use Smoking Status Reviewed: 10/28/19 Patient is a current smoker, smokes every day 1 PPD Allergies, Adverse Reactions, Alerts Description No Known Drug Allergies Medications Active Medications SIG Qnty Indications Ordering Provide r Date CPAP Device 10cm - Mehul Knight MD 04/29/2019 Venlafaxine HCL ER 150mg Caps ER 2 4HR 1 tab by mouth every day Unknown 0 Propranolol HCL ER 120mg Caps ER 2 4HR 1 tab by mouth every day Unknown 0 Acitretin 25mg Capsules One C ap daily Unknown Immunizations Description No Information Available Vital Signs Date Vital Result Comment 09/06/2020 1:03pm BP Systolic 128 mmHg BP Diastolic 86 mmHg Body Temperature 98.4 F Height 72 inches 6'0" Weight 250.06 lb BMI (Body Mass Index) 33.9 kg/m2 [place] Body Weight 178 lb Weight 113.428 kg BSA (Body Surface Area) 2.34 m2 02/22/2020 3:30pm Body Temperature 97.1 F Height 72 inches 6'0" Weight 253.00 lb BMI (Body Mass Index) 34.3 kg/m2 [place] Body Weight 178 lb Weight 114.761 kg BSA (Body Surface Area) 2.35 m2 Results Description No Information Available Procedures Description No Information Available Medical Devices Description No Information Available Encounters Description No Information Available Assessments Description No Information Available Plan of Treatment Future Appointment(s):* 10/30/2020 3:45 pm - Vanessa Vickers N.PSulaiman at [facility] Pulmonary/Thoracic Functional Status Functional Condition Comment Date Status Independent with all ADL's Activ e Independent with all IADL's Acti ve Mental Status Mental Condition Comment Date Status None Active Can understand information Activ e Referrals Refer to Reason for Referral Status Appt Date Carlito Skinner M.D. Scheduled 09/06/2020 [facility] [address] [place] [address] [phone]
--- OUTSIDE RECORDS SUMMARY | 2020-11-30 06:57 | CCD ---
Author Author [facility] Organization [facility] Address Unknown Phone Unavailable Care Team Providers Care Finger Lift Operator Name Role Phone Caryn Taylor Unavailable PROBLEMS ALLERGIES No Known Allergies ENCOUNTERS from 1975 to 2020-09-11 IMMUNIZATIONS No Information SOCIAL HISTORY No smoking Hx information available REASON FOR REFERRAL No Information VITAL SIGNS MEDICATIONS PROCEDURES No Information RESULTS No Results REASON FOR VISIT MEDICAL (GENERAL) HISTORY Goals Section Health Concerns MEDICAL EQUIPMENT No Information MENTAL STATUS FUNCTIONAL STATUS ASSESSMENTS PLAN OF TREATMENT Insurance Providers
--- OUTSIDE RECORDS SUMMARY | 2020-11-30 06:57 | CCD ---
Author Author [facility] Organization [facility] Address Unknown Phone Unavailable Care Team Providers Care Fire Control Mechanic Name Role Phone Karen Aragon MD Unavailable Unavailable Karen Aragon MD Unavailable Unavailable Karen Aragon MD Unavailable Unavailable Karen Aragon MD Unavailable Unavailable Karen Aragon MD Unavailable Unavailable Karen Aragon MD Unavailable Unavailable Karen Aragon MD Unavailable Unavailable Karen Aragon MD Unavailable Unavailable Karen Aragon MD Unavailable Unavailable Karen Aragon MD Unavailable Unavailable Karen Aragon MD Unavailable Unavailable Karen Aragon MD Unavailable Unavailable Karen Aragon MD Unavailable Unavailable Karen Aragon MD Unavailable Unavailable Karen Aragon MD Unavailable Unavailable Karen Aragon MD Unavailable Unavailable Mollison, Karen Camacho MD Unavailable Unavailable Mollison, W Doug BOONE Unavailable Unavailable Mollison, W Doug BOONE Unavailable Unavailable Mollison, W Doug BOONE Unavailable Unavailable Mollison, W Doug BOONE Unavailable Unavailable Mollison, W Doug BOONE Unavailable Unavailable Mollison, W Doug BOONE Unavailable Unavailable Mollison, Karen Camacho MD Unavailable Unavailable Mollison, Karen Camacho MD Unavailable Unavailable Mollison, W Doug BOONE Unavailable Unavailable Mollison, W Doug BOONE Unavailable Unavailable Mollison, W Doug BOONE Unavailable Unavailable Mollison, W Doug BOONE Unavailable Unavailable Mollison, W Doug BOONE Unavailable Unavailable Anuel, Edmond PA Unavailable Unavailable Anuel, Edmond PA Unavailable Unavailable Anuel, Edmond PA Unavailable Unavailable Nauel, Edmond PA Unavailable Unavailable Anuel, Edmond PA Unavailable Unavailable Anuel, Edmond PA Unavailable Unavailable Anuel, Edmond PA Unavailable Unavailable Anuel, Edmond PA Unavailable Unavailable Anuel, Edmond PA Unavailable Unavailable Anuel, Edmond PA Unavailable Unavailable Anuel, Edmond PA Unavailable Unavailable Anuel, Edmond PA Unavailable Unavailable Anuel, Edmond PA Unavailable Unavailable Anuel, Edmond PA Unavailable Unavailable Anuel, Edmond PA Unavailable Unavailable Anuel, Edmond PA Unavailable Unavailable Anuel, Edmond PA Unavailable Unavailable Anuel, Edmond PA Unavailable Unavailable Anuel, Edmond PA Unavailable Unavailable Anuel, Edmond PA Unavailable Unavailable Anuel, Edmond PA Unavailable Unavailable Anuel, Edmond PA Unavailable Unavailable Anuel, Edmond PA Unavailable Unavailable Anuel, Edmond PA Unavailable Unavailable Anuel, Edmond PA Unavailable Unavailable Anuel, Edmond PA Unavailable Unavailable Anuel, Edmond PA Unavailable Unavailable Anuel, Edmond PA Unavailable Unavailable Anuel, Edmond PA Unavailable Unavailable Anuel, Edmond PA Unavailable Unavailable Anuel, Edmond PA Unavailable Unavailable Anuel, Edmond PA Unavailable Unavailable Anuel, Edmond PA Unavailable Unavailable Anuel, Edmond PA Unavailable Unavailable Anuel, Edmond PA Unavailable Unavailable Anuel, Edmond PA Unavailable Unavailable Anuel, Edmond PA Unavailable Unavailable Anuel, Edmond PA Unavailable Unavailable Anuel, Edmond PA Unavailable Unavailable Anuel, Edmond PA Unavailable Unavailable Anuel, Edmond PA Unavailable Unavailable Anuel, Edmond PA Unavailable Unavailable Anuel, Edmond PA Unavailable Unavailable Anuel, Edmond PA Unavailable Unavailable Anuel, Edmond PA Unavailable Unavailable Anuel, Edmond PA Unavailable Unavailable Anuel, Edmond PA Unavailable Unavailable Anuel, Edmond PA Unavailable Unavailable Anuel, Edmond PA Unavailable Unavailable Anuel, Edmond PA Unavailable Unavailable Anuel, Edmond PA Unavailable Unavailable Anuel, Edmond PA Unavailable Unavailable Anuel, Edmond PA Unavailable Unavailable Anuel, Edmond PA Unavailable Unavailable TIM-NIALL, AGUSTIN DO Unavailable Unavailable TIM-NIALL, AGUSTIN DO Unavailable Unavailable TIM-NIALL, AGUSTIN DO Unavailable Unavailable TIM-NIALL, AGUSTIN DO Unavailable Unavailable TIM-NIALL, AGUSTIN DO Unavailable Unavailable TIM-NIALL, AGUSTIN DO Unavailable Unavailable TIM-NIALL, AGUSTIN DO Unavailable Unavailable TIM-NIALL, AGUSTIN DO Unavailable Unavailable TIM-NIALL, AGUSTIN DO Unavailable Unavailable TIM-NIALL, AGUSTIN DO Unavailable Unavailable TIM-NIALL, AGUSTIN DO Unavailable Unavailable TIM-NIALL, AGUSTIN DO Unavailable Unavailable TIM-NIALL, AGUSTIN DO Unavailable Unavailable TIM-NIALL, AGUSTIN DO Unavailable Unavailable TIM-NIALL, AGUSTIN DO Unavailable Unavailable TIM-NIALL, AGUSTIN DO Unavailable Unavailable TIM-NIALL, AGUSTIN DO Unavailable Unavailable TIM-NIALL, AGUSTIN DO Unavailable Unavailable TIM-NIALL, AGUSTIN DO Unavailable Unavailable TIM-NIALL, AGUSTIN DO Unavailable Unavailable TIM-NIALL, AGUSTIN DO Unavailable Unavailable TIM-NIALL, AGUSTIN DO Unavailable Unavailable TIM-NIALL, AGUSTIN DO Unavailable Unavailable TIM-NIALL, AGUSTIN DO Unavailable Unavailable TIM-NIALL, AGUSTIN DO Unavailable Unavailable TIM-NIALL, AGUSTIN DO Unavailable Unavailable TIM-NIALL, AGUSTIN DO Unavailable Unavailable TIM-NIALL, AGUSTIN DO Unavailable Unavailable TIM-NIALL, AGUSTIN DO Unavailable Unavailable TIM-NIALL, AGUSTIN DO Unavailable Unavailable TIM-NIALL, AGUSTIN DO Unavailable Unavailable TIM-NIALL, AGUSTIN DO Unavailable Unavailable TIM-NIALL, AGUSTIN DO Unavailable Unavailable TIM-NIALL, AGUSTIN DO Unavailable Unavailable TIM-NIALL, AGUSTIN DO Unavailable Unavailable TIM-NIALL, AGUSTIN DO Unavailable Unavailable TIM-NIALL, AGUSTIN DO Unavailable Unavailable TIM-NIALL, AGUSTIN DO Unavailable Unavailable TIM-NIALL, AGUSTIN DO Unavailable Unavailable TIM-NIALL, AGUSTIN DO Unavailable Unavailable TIM-NIALL, AGUSTIN DO Unavailable Unavailable TIM-NIALL, AGUSTIN DO Unavailable Unavailable TIM-NIALL, AGUSTIN DO Unavailable Unavailable TIM-NIALL, AGUSTIN DO Unavailable Unavailable TIM-NIALL, AGUSTIN DO Unavailable Unavailable TIM-NIALL, AGUSTIN DO Unavailable Unavailable TIM-NIALL, AGUSTIN DO Unavailable Unavailable TIM-NIALL, AGUSTIN DO Unavailable Unavailable TIM-NIALL, AGUSTIN DO Unavailable Unavailable TIM-NIALL, AGUSTIN DO Unavailable Unavailable TIM-NIALL, AGUSTIN DO Unavailable Unavailable TIM-NIALL, AGUSTIN DO Unavailable Unavailable TIM-NIALL, AGUSTIN DO Unavailable Unavailable TIM-NIALL, AGUSTIN DO Unavailable Unavailable TIM-NIALL, AGUSTIN DO Unavailable Unavailable TIM-NIALL, AGUSTIN DO Unavailable Unavailable TIM-NIALL, AGUSTIN DO Unavailable Unavailable TIM-NIALL, AGUSTIN DO Unavailable Unavailable TIM-NIALL, AGUSTIN DO Unavailable Unavailable TIM-NIALL, AGUSTIN DO Unavailable Unavailable TIM-NIALL, AGUSTIN DO Unavailable Unavailable TIM-NIALL, AGUSTIN DO Unavailable Unavailable TIM-NIALL, AGUSTIN DO Unavailable Unavailable TIM-NIALL, AGUSTIN DO Unavailable Unavailable TIM-NIALL, AGUSTIN DO Unavailable Unavailable TIM-NIALL, AGUSTIN DO Unavailable Unavailable TIM-NIALL, AGUSTIN DO Unavailable Unavailable TIM-NIALL, AGUSTIN DO Unavailable Unavailable TIM-NIALL, AGUSTIN DO Unavailable Unavailable TIM-NIALL, AGUSTIN DO Unavailable Unavailable TIM-NIALL, AGUSTIN DO Unavailable Unavailable TIM-NIALL, AGUSTIN DO Unavailable Unavailable TIM-NIALL, AGUSTIN DO Unavailable Unavailable TIM-NIALL, AGUSTIN DO Unavailable Unavailable TIM-NIALL, AGUSTIN DO Unavailable Unavailable TIM-NIALL, AGUSTIN DO Unavailable Unavailable TIM-NIALL, AGUSTIN DO Unavailable Unavailable TIM-NIALL, AGUSTIN DO Unavailable Unavailable TIM-NIALL, AGUSTIN DO Unavailable Unavailable TIM-NIALL, AGUSTIN DO Unavailable Unavailable TIM-NIALL, AGUSTIN DO Unavailable Unavailable TIM-NIALL, AGUSTIN DO Unavailable Unavailable TIM-NIALL, AGUSTIN DO Unavailable Unavailable TIM-NIALL, AGUSTIN DO Unavailable Unavailable Saravia, D Geni HAT PARTS CUTTER MACHINE-C Unavailable Unavailable Saravia, D Geni HAT PARTS CUTTER MACHINE-C Unavailable Unavailable Saravia, D Geni HAT PARTS CUTTER MACHINE-C Unavailable Unavailable Saravia, D Geni HAT PARTS CUTTER MACHINE-C Unavailable Unavailable Saravia, D Geni HAT PARTS CUTTER MACHINE-C Unavailable Unavailable Saravia, D Geni HAT PARTS CUTTER MACHINE-C Unavailable Unavailable Saravia, D Geni HAT PARTS CUTTER MACHINE-C Unavailable Unavailable MARK, RACHEL JEFF HAT PARTS CUTTER MACHINE-C Unavailable Unavailable MARK, RACHEL JEFF HAT PARTS CUTTER MACHINE-C Unavailable Unavailable MARK, RACHEL JEFF HAT PARTS CUTTER MACHINE-C Unavailable Unavailable MARK, RACHEL JEFF HAT PARTS CUTTER MACHINE-C Unavailable Unavailable MARK, RACHEL JEFF HAT PARTS CUTTER MACHINE-C Unavailable Unavailable MARK, RACHEL JEFF HAT PARTS CUTTER MACHINE-C Unavailable Unavailable MARK, RACHEL JEFF HAT PARTS CUTTER MACHINE-C Unavailable Unavailable MARK, RACHEL JEFF HAT PARTS CUTTER MACHINE-C Unavailable Unavailable MARK, RACHEL JEFF HAT PARTS CUTTER MACHINE-C Unavailable Unavailable MARK, RACHEL JEFF HAT PARTS CUTTER MACHINE-C Unavailable Unavailable MARK, RACHEL JEFF HAT PARTS CUTTER MACHINE-C Unavailable Unavailable MARK, RACHEL JEFF HAT PARTS CUTTER MACHINE-C Unavailable Unavailable MARK, RACHEL JEFF HAT PARTS CUTTER MACHINE-C Unavailable Unavailable MARK, RACHEL JEFF HAT PARTS CUTTER MACHINE-C Unavailable Unavailable MARK, RACHEL JEFF HAT PARTS CUTTER MACHINE-C Unavailable Unavailable MARK, RACHEL JEFF HAT PARTS CUTTER MACHINE-C Unavailable Unavailable MARK, RACHEL JEFF HAT PARTS CUTTER MACHINE-C Unavailable Unavailable Munising, Kemi HAT PARTS CUTTER MACHINE Unavailable Unavailable Munising, Kemi HAT PARTS CUTTER MACHINE Unavailable Unavailable Munising, Kemi HAT PARTS CUTTER MACHINE Unavailable Unavailable Munising, Kemi HAT PARTS CUTTER MACHINE Unavailable Unavailable Munising, Kemi HAT PARTS CUTTER MACHINE Unavailable Unavailable Munising, Kemi HAT PARTS CUTTER MACHINE Unavailable Unavailable Munising, Kemi HAT PARTS CUTTER MACHINE Unavailable Unavailable Munising, Kemi HAT PARTS CUTTER MACHINE Unavailable Unavailable Munising, Kemi HAT PARTS CUTTER MACHINE Unavailable Unavailable Munising, Kemi HAT PARTS CUTTER MACHINE Unavailable Unavailable Munising, Kemi HAT PARTS CUTTER MACHINE Unavailable Unavailable Munising, Kemi HAT PARTS CUTTER MACHINE Unavailable Unavailable Munising, Kemi HAT PARTS CUTTER MACHINE Unavailable Unavailable Munising, Kemi HAT PARTS CUTTER MACHINE Unavailable Unavailable Munising, Kemi HAT PARTS CUTTER MACHINE Unavailable Unavailable Munising, Kemi HAT PARTS CUTTER MACHINE Unavailable Unavailable Munising, Kemi HAT PARTS CUTTER MACHINE Unavailable Unavailable Munising, Kemi HAT PARTS CUTTER MACHINE Unavailable Unavailable Munising, Kemi HAT PARTS CUTTER MACHINE Unavailable Unavailable Munising, Kemi HAT PARTS CUTTER MACHINE Unavailable Unavailable Munising, Kemi HAT PARTS CUTTER MACHINE Unavailable Unavailable Munising, Kemi HAT PARTS CUTTER MACHINE Unavailable Unavailable Munising, Kemi HAT PARTS CUTTER MACHINE Unavailable Unavailable Munising, Kemi HAT PARTS CUTTER MACHINE Unavailable Unavailable Munising, Kemi HAT PARTS CUTTER MACHINE Unavailable Unavailable Munising, Kemi HAT PARTS CUTTER MACHINE Unavailable Unavailable Munising, Kemi HAT PARTS CUTTER MACHINE Unavailable Unavailable Munising, Kemi HAT PARTS CUTTER MACHINE Unavailable Unavailable Munising, Kemi HAT PARTS CUTTER MACHINE Unavailable Unavailable Munising, Kemi HAT PARTS CUTTER MACHINE Unavailable Unavailable Munising, Kemi HAT PARTS CUTTER MACHINE Unavailable Unavailable Munising, Kemi HAT PARTS CUTTER MACHINE Unavailable Unavailable Munising, Kemi HAT PARTS CUTTER MACHINE Unavailable Unavailable Munising, Kemi HAT PARTS CUTTER MACHINE Unavailable Unavailable Munising, Kemi HAT PARTS CUTTER MACHINE Unavailable Unavailable Munising, Kemi HAT PARTS CUTTER MACHINE Unavailable Unavailable Archer, L Melina RPA Unavailable Unavailable Archer, L Melina RPA Unavailable Unavailable Archer, L Melina RPA Unavailable Unavailable Archer, L Melina RPA Unavailable Unavailable Archer, L Melina RPA Unavailable Unavailable Archer, L Melina RPA Unavailable Unavailable Archer, L Melina RPA Unavailable Unavailable Archer, L Melina RPA Unavailable Unavailable Archer, L Melina RPA Unavailable Unavailable Archer, L Melina RPA Unavailable Unavailable Archer, L Melina RPA Unavailable Unavailable Archer, L Melina RPA Unavailable Unavailable Archer, L Melina RPA Unavailable Unavailable Archer, L Melina RPA Unavailable Unavailable Archer, L Melina RPA Unavailable Unavailable Archer, L Melina RPA Unavailable Unavailable Archer, L Melina RPA Unavailable Unavailable Archer, L Melina RPA Unavailable Unavailable Archer, L Melina RPA Unavailable Unavailable Archer, L Melina RPA Unavailable Unavailable Archer, L Melina RPA Unavailable Unavailable Archer, L Melina RPA Unavailable Unavailable Archer, L Melina RPA Unavailable Unavailable Archer, L Melina RPA Unavailable Unavailable Archer, L Melina RPA Unavailable Unavailable Archer, L Melina RPA Unavailable Unavailable Archer, L Melina RPA Unavailable Unavailable Archer, L Melina RPA Unavailable Unavailable Archer, L Melina RPA Unavailable Unavailable Archer, L Melina RPA Unavailable Unavailable Archer, L Melina RPA Unavailable Unavailable Archer, L Melina RPA Unavailable Unavailable Re-disclosure Warning The records that you are about to access may contain information from federally-assisted alcohol or drug abuse programs. If such information is present, then the following federally mandated warning applies: This information has been disclosed to you from records protected by federal confidentiality rules (42 CFR part 2). The federal rules prohibit you from making any further disclosure of this information unless further disclosure is expressly permitted by the written consent of the person to whom it pertains or as otherwise permitted by 42 CFR part 2. A general authorization for the release of medical or other information is NOT sufficient for this purpose. The Federal rules restrict any use of the information to criminally investigate or prosecute any alcohol or drug abuse patient.The records that you are about to access may contain highly sensitive health information, the redisclosure of which is protected by Article 27-F of the [facility] Public Health law. If you continue you may have access to information: Regarding HIV / AIDS; Provided by facilities licensed or operated by the [facility] Office of Mental Health; or Provided by the [facility] Office for People With Developmental Disabilities. If such information is present, then the following [facility] mandated warning applies: This information has been disclosed to you from confidential records which are protected by state law. State law prohibits you from making any further disclosure of this information without the specific written consent of the person to whom it pertains, or as otherwise permitted by law. Any unauthorized further disclosure in violation of state law may result in a fine or care home sentence or both. A general authorization for the release of medical or other information is NOT sufficient authorization for further disc losure. Family History Family Member Name Family Member Gender Family Member Status Date o f Status Description Data Source(s) Unknown Unknown Problem MEDENT ([facility]) Encounters Encounter Providers Location Date Indications Data Source(s ) Outpatient Attender: Edmond NGUYEN [facility] 11/13/2020 02:40:00 PM EDT MEDENT ([facility]) Outpatient Attender: JEFF VALDEZP-C Patsy/[place]/Imtiaz/R eindl 10/18/2020 07:15:00 AM EDT MEDENT ([facility]) Outpatient Attender: Mickie Schrader [facility] Main Office 09/21/2020 08:15:00 AM EDT MEDENT ([facility]) Outpatient Attender: Mickie Schrader [facility] Main Office 09/07/2020 04:15:00 PM EDT MEDENT ([facility]) Outpatient Attender: Melina Garner/[place]/Imtiaz/R eindl 09/06/2020 01:00:00 PM EDT MEDENT ([facility]) [place] [address] [address] 08/31/2020 12:00:00 AM EDT eCW1 ([facility]) Outpatient Attender: AGUSTIN NEWTON [facility] 08/22/2020 04:00:00 PM EDT MEDENT ([facility]) Outpatient Attender: Mickie Schrader [facility] Main Office 08/21/2020 08:00:00 AM EDT MEDENT ([facility]) [place] [address] [address] 08/01/2020 12:00:00 AM EDT eCW1 ([facility]) Outpatient Attender: Geni Saravia HAT PARTS CUTTER MACHINE-C Main Office 07/20/2020 02:00:00 PM EDT MEDENT ([facility]) Outpatient Attender: AGUSTIN NEWTON [facility] 07/18/2020 03:40:00 PM EDT MEDENT ([facility]) [place] [address] [address] 07/18/2020 12:00:00 AM EDT eCW1 ([facility]) [place] [address] [address] 07/07/2020 12:00:00 AM EDT eCW1 ([facility]) [place] [address] [address] 06/28/2020 12:00:00 AM EDT eCW1 ([facility]) [place]patient [address] [address] 06/27/2020 12:00:00 AM EDT [facility] [place] [address] [address] 06/23/2020 12:00:00 AM EDT [facility]CW1 [facility] Outpatient Attender: Edmond NGUYEN Family [facility] 06/20/2020 09:00:00 AM EDT MEDENT ([facility]) Outpatient Attender: AGUSTIN NEWTON DO Family Medicine [facility] 06/14/2020 02:30:00 PM EDT MEDENT ([facility]) Outpatient Attender: Edmond NGUYEN [facility] 01/13/2020 02:00:00 PM EST MEDENT ([facility]) Outpatient Attender: Doug Garner/[place]rent/Imtiaz/Re indl 12/23/2019 08:10:00 AM EST MEDENT ([facility]) Outpatient Attender: Edmond NGUYEN [facility] 12/09/2019 01:40:00 PM EDT MEDENT ([facility]) Outpatient Attender: Doug Garner/Brent/Imtiaz/Re indl 11/25/2019 09:10:00 AM EDT MEDENT ([facility]) Outpatient Attender: JEFF VALDES-Maria E Garner/Brent/Imtiaz/R eindl 10/28/2019 03:45:00 PM EDT MEDENT ([facility]) Immunizations Vaccine Date Status Description Data Source(s) COVID-19 VACCINE [employer] 05/12/2020 12:00:00 AM EDT completed [facility] Vaccine Series Complete: YESThis Data wa s Submitted to [facility] Via [employer]. COVID-19 VACCINE Pfizer 04/21/2020 12:00:00 AM EST completed [facility] Vaccine Series Complete: NOThis Data was Submitted to [facility] [employer]. Medications Medication Brand Name Start Date Product Form Dose Route Admi nistrative Instructions Pharmacy Instructions Status Indications Reaction Description Data Source(s) SUPREP BOWEL PREP KIT 17.5-3.13-1.6 gram SODIUM, POTASSIUM,M AG SULFATES 11/21/2020 12:00:00 AM EDT recon soln 354 TAKE PER DOCTOR'S BOWEL PREP INSTRUCTIONS TAKE PER DOCTOR'S BOWEL PREP INSTRUCTIONS SOLD: 11/23/2020 [facility] Chantix Starting Chantix Starting Month 2020 12:00:00 AM EDT ORAL active MEDENT ([facility]) Bilateral Shoe Orthotics. 11/13/2020 12:00:00 AM EDT active MEDENT ([facility]) 120 mg 10/31/2020 12:00:00 AM EDT capsule,extended releas e 24 hr 90 TAKE ONE CAPSULE BY MOUTH EVERY DAY TAKE ONE CAPSULE BY MOUTH EVERY DAY SOLD: 11/01/2020 [facility] 150 mg 10/31/2020 12:00:00 AM EDT capsule,extended releas e 24hr 90 TAKE ONE CAPSULE BY MOUTH EVERY DAY TAKE ONE CAPSULE BY MOUTH EVERY DAY SOLD: 11/01/2020 [facility] 250 mg 10/10/2020 12:00:00 AM EDT tablet 30 TAKE ONE TABLET BY MOUTH EVERY DAY TAKE ONE TABLET BY MOUTH EVERY DAY SOLD: 10/17/2020 [facility] 250 mg 09/08/2020 12:00:00 AM EDT tablet 30 TAKE ONE TABLET BY MOUTH EVERY DAY TAKE ONE TABLET BY MOUTH EVERY DAY SOLD: 09/08/2020 [facility] terbinafine 250 MG Oral Tablet Terbinafine HCL 09/07/2020 12:00:00 AM EDT ORAL active [facility] ([facility] 100,000 unit/mL 08/22/2020 12:00:00 AM EDT suspension 473 TAKE 5ML BY MOUTH AND SWISH AROUND MOUTH FOR 2 MIN THEN SWALLOW EVERY 6 HOURS TAKE 5ML BY MOUTH AND SWISH AROUND MOUTH FOR 2 MIN THEN SWALLOW EVERY 6 HOURS SOLD: 08/23/2020 [facility] Nystatin 439521 UNT/ML Oral Suspension Nystatin 08/22/2020 12:00:00 AM EDT ORAL completed MEDENT ([facility]) 0.05 % 08/21/2020 12:00:00 AM EDT cream 15 APPLY TO FACE SPARINGLY TWO TIMES A DAY FOR 3 DAYS THEN NEEDED APPLY TO FACE SPARINGLY TWO TIMES A DAY FOR 3 DAYS THEN NEEDED SOLD: 08/21/2020 [facility] 25 mg 08/21/2020 12:00:00 AM EDT capsule 30 TAKE ONE CAPSULE BY MOUTH EVERY DAY TAKE ONE CAPSULE BY MOUTH EVERY DAY SOLD: 08/23/2020 [facility] Fluticasone propionate 0.5 MG/ML Topical Cream Fluticasone P ropionate 08/21/2020 12:00:00 AM EDT active M EDENT ([facility]) Metronidazole 500 MG Oral Tablet METRONIDAZOLE 08/01/2020 12:0 0:00 AM EDT tablet 42 TAKE ONE TABLET BY MOUTH THREE T IMES A DAY FOR 14 DAYS TAKE ONE TABLET BY MOUTH THREE TIMES A DAY FOR 14 DAYS SOLD: 08/01/2020 [facility] Metronidazole 500 MG Oral Tablet metroNIDAZOLE 500 MG metroN IDAZOLE 500 MG 08/01/2020 12:00:00 AM EDT 1.0 {tablet} active metroNIDAZOLE 500 MG eCW1 ([facility]) cefdinir 300 MG Oral Capsule Cefdinir 300 MG Cefdinir 300 MG 08/01/2020 12:00:00 AM EDT active Cefdinir 300 MG e CW1 ([facility]) 300 mg 08/01/2020 12:00:00 AM EDT capsule 28 TAKE ONE CAPSULE BY MOUTH TWICE A DAY FOR 14 DAYS TAKE ONE CAPSULE BY MOUTH TWICE A DAY FOR 14 DAYS SOLD : 08/01/2020 [facility] 25 mg 07/28/2020 12:00:00 AM EDT capsule 30 TAKE ONE CAPSULE BY MOUTH EVERY DAY TAKE ONE CAPSULE BY MOUTH EVERY DAY SOLD: 07/29/2020 [facility] Acitretin 25 MG Oral Capsule Acitretin 07/27/2020 12:00:00 AM EDT active MEDENT ([facility]) Nystatin [id number] UNT/ML Topical Cream Nystatin 07/20/2020 12:00:00 AM EDT active MEDENT ([facility]) 100,000 unit/gram 07/20/2020 12:00:00 AM EDT cream 30 APPLY TO AFFECTED AREA(S) OF BUTTOCKS TWO TIMES A DAY UNTIL CLEAR THEN NEEDED APPLY TO AFFECTED AREA(S) OF BUTTOCKS TWO TIMES A DAY UNTIL CLEAR THEN NEEDED SOLD: 07/29/2020 [facility] Emollient Clobetasol Propionate 0.5 MG/ML Topical Crea m 0.05 % CLOBETASOL PROPIONATE/EMOLL 07/19/2020 12:00:00 AM EDT cream 60 APPLY TO RASH ON HANDS, FEET AND LEG TWO TIMES A DAY FOR 7 DAYS NEEDED FOR FLARES DIRECTED APPLY TO RASH ON HANDS, FEET AND LEG TWO TIMES A DAY FOR 7 DAYS NEEDED FOR FLARES DIRECTED SOLD: 07/19/2020 [facility] Prednisone 10 MG Oral Tablet Prednisone 07/18/2020 12:00:00 AM EDT completed MEDENT ([facility]) Clobetasol Propionate E Clobetasol Propionate E 07/18/2020 12:00:00 A EDT completed MEDENT ([facility]) moxifloxacin 400 MG Oral Tablet Moxifloxacin HCl 400 MG Moxi floxacin HCl 400 MG 07/18/2020 12:00:00 AM EDT 1.0 {tablet} active Moxifloxacin HCl 400 MG eCW1 ([facility]) 400 mg 07/18/2020 12:00:00 AM EDT tablet 14 TAKE ONE TABLET BY MOUTH ONCE DAILY TAKE ONE TABLET BY MOUTH ONCE DAILY SOLD: 07/18/2020 [facility] 10 mg 07/18/2020 12:00:00 AM EDT tablet 35 TAKE 4 TABLETS BY MOUTH ONCE DAILY FOR 5 DAYS THEN 3 TABLETS ONCE DAILY FOR 3 DAYS THEN 2 TABLETS ONCE DAILY FOR 2 TABLETS THEN 1 TABLET ONCE DAILY FOR 2 DAYS THEN STOP TAKE 4 TABLETS BY MOUTH ONCE DAILY FOR 5 DAYS THEN 3 TABLETS ONCE DAILY FOR 3 DAYS THEN 2 TABLETS ONCE DAILY FOR 2 TABLETS THEN 1 TABLET ONCE DAILY FOR 2 DAYS THEN STOP SOLD: 07/18/2020 [facility] Acetaminophen 325 MG / Hydrocodone Bitartrate 7.5 MG O ral Tablet 7.5-325 mg HYDROCODONE/ACETAMINOPHEN 06/28/2020 12:00:00 AM EDT tablet 28 TAKE ONE TABLET BY MOUTH EVERY 6 HOURS NEEDED FOR SEVERE PAIN, MAXIMUM DAILY DOSE = 4 TABLETS TAKE ONE TABLET BY MOUTH EVERY 6 HOURS A S NEEDED FOR SEVERE PAIN, MAXIMUM DAILY DOSE = 4 TABLETS SOLD: 06/28/2020 [facility] Ampicillin 2000 MG / Sulbactam 1000 MG Injection [Unas yn] Unasyn 3 (2-1) GM Unasyn 3 (2-1) 06/27/2020 12:00:00 AM EDT active Unasyn 3 (2-1) [place] [id number] ([facility]) Ampicillin 2000 MG / Sulbactam 1000 MG Injection [Unas yn] Unasyn 3 (2-1) GM Unasyn 3 (2-1) 06/27/2020 12:00:00 AM EDT [facility] Ampicillin 2000 MG / Sulbactam 1000 MG Injection [Unas yn] Unasyn 3 (2-1) GM Unasyn 3 (2-1) 06/27/2020 12:00:00 AM EDT activ e eCW1 ([facility]) Ampicillin 2000 MG / Sulbactam 1000 MG Injection [Unas yn] Unasyn 3 (2-1) GM Unasyn 3 (2-1) GM 06/27/2020 12:00:00 AM EDT active [facility] 5-325 mg 06/23/2020 12:00:00 AM EDT tablet 10 TAKE 1 TABLET BY MOUTH EVERY 4 TO 6 HOURS NEEDED FOR PAIN MAXIMUM DAILY DOSE = 6 TABLETS TAKE 1 TABLET BY MOUTH EVERY 4 TO 6 HOURS NEEDED FOR PAIN MAXIMUM DAILY DOSE = 6 TABLETS SOLD: 06/23/2020 [facility] Amoxicillin 875 MG / Clavulanate 125 MG Oral Tablet 87 5-125 mg AMOXICILLIN/POTASSIUM CLAV 06/23/2020 12:00:00 AM EDT tablet 20 TAKE ONE TABLET BY MOUTH TWICE A DAY AFTER MEALS TAKE ONE TABLET BY MOUTH TWICE A DAY AFTER MEALS SOLD: 06/23/2020 [facility] 0.12 % 06/23/2020 12:00:00 AM EDT mouthwash 473 RINSE MOUTH WITH 15 ML ( 1 CAPFUL) FOR 30 SECONDS IN THE MORNING AND IN THE EVENING AFTER TOOTHBRUSHING, EXPECTORATE AFTER RINSING, DO NOT SWALLOW RINSE MOUTH WITH 15 ML ( 1 CAPFUL) FOR 30 SECONDS IN THE MORNING AND IN THE EVENING AFTER TOOTHBRUSHING, EXPECTORATE AFTER RINSING, DO NOT SWALLOW SOLD: 06/23/2020 [facility] 4 mg 06/23/2020 12:00:00 AM EDT tablet 21 TAPER DIRECTED, TAKE 6 TABLETS ON DAY 1, THEN 5 TABLETS ON DAY 2, THEN 4 TABLETS ON DAY 3, THEN 3 TABLETS ON DAY 4, THEN 2 TABLETS ON DAY 5 THEN 1 TABLET ON DAY 6 TAPER DIRECTED, TAKE 6 TABLETS ON DAY 1, THEN 5 TABLETS ON DAY 2, THEN 4 TABLETS ON DAY 3, THEN 3 TABLETS ON DAY 4, THEN 2 TABLETS ON DAY 5 THEN 1 TABLET ON DAY 6 SOLD: 06/23/2020 [facility] 600 mg 06/23/2020 12:00:00 AM EDT tablet 20 TAKE 1 TABLET BY MOUTH EVERY 6 HOURS NEEDED TAKE 1 TABLET BY MOUTH EVERY 6 HOURS NEEDED SOLD: [facility] Acetaminophen 325 MG / Hydrocodone Bitartrate 7.5 MG O ral Tablet 7.5-325 mg HYDROCODONE/ACETAMINOPHEN 06/20/2020 12:00:00 AM EDT tablet 28 TAKE ONE TABLET BY MOUTH EVERY 6 HOURS NEEDED FOR SEVERE PAIN MAXIMUM DAILY DOSE = 4 TAKE ONE TABLET BY MOUTH EVERY 6 HOURS NEEDED FOR SEVERE PAIN MAXIMUM DAILY DOSE = 4 SOLD: 06/20/2020 [facility] gabapentin 300 MG Oral Capsule Gabapentin 06/20/2020 12:00:00 AM EDT ORAL completed [facility] ([facility]) 300 mg 06/20/2020 12:00:00 AM EDT capsule 60 TAKE ONE CAPSULE BY MOUTH THREE TIMES A DAY NEEDED TAKE ONE CAPSULE BY MOUTH THREE TIMES A DAY NEEDED SOLD: 06/20/2020 [facility] Acetaminophen 325 MG / Hydrocodone Bitartrate 7.5 MG O ral Tablet Hydrocodone-Acetaminophen 06/20/2020 12:00:00 AM EDT ORAL completed [facility] ([facility]) Injection Ketorolac Tromethamine Per 15 MG (Toradol) 06/20/2020 12:00:00 AM EDT completed [facility] ([facility]) Medication administered onsite Betamethasone 0.5 MG/ML / Clotrimazole 10 MG/ML Topica l Cream 1-0.05 % CLOTRIMAZOLE/BETAMETHASONE DIP 06/14/2020 12:00:00 AM EDT cream 45 APPLY TO RASH ON THE PLANTAR ASPECT OF RIGHT FOOT TWICE DAILY UNTIL RESOLVED APPLY TO RASH ON THE PLANTAR ASPECT OF RIGHT FOOT TWICE DAILY UNTIL RESOLVED SOLD: 06/14/2020 [facility] 100 mg 06/14/2020 12:00:00 AM EDT capsule 20 TAKE ONE CAPSULE BY MOUTH TWICE A DAY FOR 10 DAYS TAKE ONE CAPSULE BY MOUTH TWICE A DAY FOR 10 DAYS SOLD : 06/14/2020 [facility] 20 mg 06/14/2020 12:00:00 AM EDT tablet 5 TAKE ONE TABLET BY MOUTH EVERY DAY FOR 5 DAYS TAKE ONE TABLET BY MOUTH EVERY DAY FOR 5 DAYS SOLD: 06/14/2020 [facility] Prednisone 20 MG Oral Tablet Prednisone 06/14/2020 12:00:00 AM EDT ORAL completed [facility] ([facility]) Betamethasone 0.5 MG/ML / Clotrimazole 10 MG/ML Topica l Cream Clotrimazole/Betamethasone Dipropionate 06/14/2020 12:00:00 AM EDT completed [facility] ([facility]) Doxycycline Monohydrate 100 MG Oral Capsule Doxycycline [place] hydrate 06/14/2020 12:00:00 AM EDT ORAL completed [facility] ([facility]) Cyclobenzaprine hydrochloride 10 MG Oral Tablet CYCLOBENZAPR INE HCL 05/31/2020 12:00:00 AM EDT tablet 14 TAKE ONE TABLET BY MOUTH AT BEDTIME NEEDED TAKE ONE TABLET BY MOUTH AT BEDTIME NEEDED SOLD: 05/31/2020 [facility] 500 mg 05/22/2020 12:00:00 AM EDT capsule 21 TAKE ONE CAPSULE BY MOUTH EVERY 8 HOURS UNTIL FINISHED TAKE ONE CAPSULE BY MOUTH EVERY 8 HOURS UNTIL FINISHED SOLD: 05/22/2020 [facility] 5-325 mg 05/21/2020 12:00:00 AM EDT tablet 10 TAKE 1 TABLET BY MOUTH EVERY 4 TO 6 HOURS NEEDED FOR PAIN MAXIMUM DAILY DOSE = 6 TABLETS TAKE 1 TABLET BY MOUTH EVERY 4 TO 6 HOURS NEEDED FOR PAIN MAXIMUM DAILY DOSE = 6 TABLETS SOLD: 05/21/2020 [facility] 5-325 mg 05/15/2020 12:00:00 AM EDT tablet 10 TAKE ONE TABLET BY MOUTH EVERY 4 TO 6 HOURS NEEDED FOR PAIN, MAXIMUM DAILY DOSE = 6 TABLETS TAKE ONE TABLET BY MOUTH EVERY 4 TO 6 HOURS NEEDED FOR PAIN, MAXIMUM DAILY DOSE = 6 TABLETS SOLD: 05/15/2020 [facility] Acetaminophen 325 MG Oral Tablet ACETAMINOPHEN 05/10/2020 12:0 0:00 AM EDT tablet 12 TAKE ONE TABLET BY MOUTH EVERY 6 HOURS NEEDED FOR PAIN TAKE ONE TABLET BY MOUTH EVERY 6 HOURS NEEDED FOR PAIN SOLD: 05/10/2020 [facility] 600 mg 05/10/2020 12:00:00 AM EDT tablet 20 TAKE ONE TABLET BY MOUTH EVERY 6 HOURS NEEDED TAKE ONE TABLET BY MOUTH EVERY 6 HOURS NEEDED SOLD: 05/10/2020 [facility] 0.12 % 05/10/2020 12:00:00 AM EDT mouthwash 473 RINSE WITH 15ML (1 CAPFUL) FOR 30 SECONDS IN THE MORNING AND IN THE EVENING AFTER BRUSHING (SPIT OUT DO NOT SWALLOW) RINSE WITH 15ML (1 CAPFUL) FOR 30 SECOND S IN THE MORNING AND IN THE EVENING AFTER BRUSHING (SPIT OUT DO NOT SWALLOW) SOLD: 05/10/2020 [facility] 4 mg 05/10/2020 12:00:00 AM EDT tablets,dose pack 21 TAKE DIRECTED ON PACKAGE TAKE DIRECTED ON PACKAGE SOLD: 05/10/2020 [facility] 500 mg 05/10/2020 12:00:00 AM EDT capsule 21 TAKE ONE CAPSULE BY MOUTH EVERY 8 HOURS UNTIL GONE TAKE ONE CAPSULE BY MOUTH EVERY 8 HOURS UNTIL GONE BENOIT [facility] 120 mg 05/09/2020 12:00:00 AM EDT capsule,extended releas e 24 hr 90 TAKE ONE CAPSULE BY MOUTH ONCE DAILY TAKE ONE CAPSULE BY MOUTH ONCE DAILY SOLD: 05/09/2020 [facility] 150 mg 05/09/2020 12:00:00 AM EDT capsule,extended releas e 24hr 90 TAKE ONE CAPSULE BY MOUTH ONCE DAILY TAKE ONE CAPSULE BY MOUTH ONCE DAILY SOLD: 05/09/2020 [facility] 120 mg 05/09/2020 12:00:00 AM EDT capsule,extended releas e 24 hr 90 TAKE ONE CAPSULE BY MOUTH ONCE DAILY TAKE ONE CAPSULE BY MOUTH ONCE DAILY SOLD: 08/05/2020 [facility] 150 mg 05/09/2020 12:00:00 AM EDT capsule,extended releas e 24hr 90 TAKE ONE CAPSULE BY MOUTH ONCE DAILY TAKE ONE CAPSULE BY MOUTH ONCE DAILY SOLD: 08/05/2020 [facility] 875-125 mg 01/31/2020 12:00:00 AM EST tablet 14 TAKE ONE TABLET BY MOUTH TWICE A DAY FOR 7 DAYS TAKE ONE TABLET BY MOUTH TWICE A DAY FOR 7 DAYS SOLD: 01/31/2020 [facility] 500 mg 01/26/2020 12:00:00 AM EST tablet 40 TAKE ONE TABLET BY MOUTH FOUR TIMES A DAY FOR 10 DAYS TAKE ONE TABLET BY MOUTH FOUR TIMES A DAY FOR 10 DAYS SOLD: 01/26/2020 [facility] 24 HR Bupropion Hydrochloride 150 MG Extended Release Oral T ablet BUPROPION HCL 12/10/2019 12:00:00 AM EDT tablet extended release 24 hr 30 TAKE ONE TABLET BY MOUTH EVERY DAY TAKE ONE TABLET BY MOUTH EVERY DAY SOLD: 12/11/2019 [facility] 24 HR Bupropion Hydrochloride 150 MG Extended Release Oral Tablet Bupropion Hydrochloride ER (XL) 12/09/2019 12:00:00 AM EDT ORAL c ompleted [facility] ([facility]) 120 mg 11/11/2019 12:00:00 AM EDT capsule,extended releas e 24 hr 30 TAKE ONE CAPSULE BY MOUTH EVERY DAY TAKE ONE CAPSULE BY MOUTH EVERY DAY SOLD: 01/10/2020 [facility] 120 mg 11/11/2019 12:00:00 AM EDT capsule,extended releas e 24 hr 30 TAKE ONE CAPSULE BY MOUTH EVERY DAY TAKE ONE CAPSULE BY MOUTH EVERY DAY SOLD: 03/10/2020 [facility] 150 mg 11/11/2019 12:00:00 AM EDT tablet extended release 24hr 30 TAKE ONE TABLET BY MOUTH EVERY DAY TAKE ONE TABLET BY MOUTH EVERY DAY SOLD: 11/11/2019 [facility] 120 mg 11/11/2019 12:00:00 AM EDT capsule,extended releas e 24 hr 30 TAKE ONE CAPSULE BY MOUTH EVERY DAY TAKE ONE CAPSULE BY MOUTH EVERY DAY SOLD: 02/09/2020 [facility] 120 mg 11/11/2019 12:00:00 AM EDT capsule,extended releas e 24 hr 30 TAKE ONE CAPSULE BY MOUTH EVERY DAY TAKE ONE CAPSULE BY MOUTH EVERY DAY SOLD: 12/11/2019 [facility] 120 mg 11/11/2019 12:00:00 AM EDT capsule,extended releas e 24 hr 30 TAKE ONE CAPSULE BY MOUTH EVERY DAY TAKE ONE CAPSULE BY MOUTH EVERY DAY SOLD: 04/07/2020 [facility] 120 mg 11/11/2019 12:00:00 AM EDT capsule,extended releas e 24 hr 30 TAKE ONE CAPSULE BY MOUTH EVERY DAY TAKE ONE CAPSULE BY MOUTH EVERY DAY SOLD: 11/11/2019 [facility] 150 mg 05/08/2019 12:00:00 AM EDT capsule,extended releas e 24hr 30 TAKE ONE CAPSULE BY MOUTH EVERY DAY TAKE ONE CAPSULE BY MOUTH EVERY DAY SOLD: 02/09/2020 [facility] 150 mg 05/08/2019 12:00:00 AM EDT capsule,extended releas e 24hr 30 TAKE ONE CAPSULE BY MOUTH EVERY DAY TAKE ONE CAPSULE BY MOUTH EVERY DAY SOLD: 12/19/2019 [facility] 150 mg 05/08/2019 12:00:00 AM EDT capsule,extended releas e 24hr 30 TAKE ONE CAPSULE BY MOUTH EVERY DAY TAKE ONE CAPSULE BY MOUTH EVERY DAY SOLD: 04/07/2020 [facility] 150 mg 05/08/2019 12:00:00 AM EDT capsule,extended releas e 24hr 30 TAKE ONE CAPSULE BY MOUTH EVERY DAY TAKE ONE CAPSULE BY MOUTH EVERY DAY SOLD: 11/11/2019 [facility] 150 mg 05/08/2019 12:00:00 AM EDT capsule,extended releas e 24hr 30 TAKE ONE CAPSULE BY MOUTH EVERY DAY TAKE ONE CAPSULE BY MOUTH EVERY DAY SOLD: 10/12/2019 [facility] 150 mg 05/08/2019 12:00:00 AM EDT capsule,extended releas e 24hr 30 TAKE ONE CAPSULE BY MOUTH EVERY DAY TAKE ONE CAPSULE BY MOUTH EVERY DAY SOLD: 03/10/2020 [facility] 24 HR venlafaxine 150 MG Extended Releas e Oral Tablet Venlafaxine HCl ER 150 MG Oral Tablet Extended Release 24 Hour Venlafaxine HCl ER 150 MG Oral Tablet Extended Release 24 Hour 05/07/2019 12:00:00 AM EDT 1 active 24 HR venlafaxine 150 MG Extended Release Oral Tablet [facility] ([facility]) 120 mg 11/11/2018 12:00:00 AM EDT capsule,extended releas e 24 hr 30 TAKE ONE CAPSULE BY MOUTH EVERY DAY TAKE ONE CAPSULE BY MOUTH EVERY DAY SOLD: 10/12/2019 [facility] Insurance Providers Payer name Policy type / Coverage type Policy ID Covered republican ID Covered republican's relationship to casey Policy Casey Plan Information BLUE CROSS [id number] SP [id number] EXCELLUS H [id number] Self [id number] [facility] Other 0 [id number] Family Dependent Adamaris Iris-Lidiaack 0 [facility] [facility] Other 0 [id number] Family Dependent Adamaris Iris-Horack 0 [employer] Health Maintenance Organization (HMO) [id number] Family Dependent [id number] [employer] [place] Other 0 [id number] Family Dependent Adamaris Iris-Horack 0 [employer] Health Maintenance Organization (HMO) [id number] Family Dependent [id number] [employer] [place] Other 0 [id number] Family Dependent Adamaris Iris-Horack 0 [employer] [place] Other 0 [id number] Family Dependent Adamaris Iris-Horack 0 UMR [id number] SP [id number] SELF PAY [employer] [id number] SP [id number] [employer] Other 0 [id number] Self 0 [employer] [id number] Family Dependent BCBS/[employer] Commercial [id number] Self BS/W/Id#Prefix/W ALL #'S Commercial [id number] Self BCBS [place] PPO [id number] SP [id number] [facility] DOI 05/04/13 18 DOI 05/04/13 BLUE CROSS BLUE SHIELD-O/P [id number] 18 [id number] R [facility] [id number] WI2 [id number] EXCELLUS BCBS P [id number] S VYS [id number] R [facility] [id number] WI2 [id number] BCBS [employer] PROGRAM [id number] [place]2 [id number] [employer] [place] Other 0 [id number] Self 0 [employer] Health Maintenance Organization (HMO) [id number] Self [id number] BC[employer] [id number] Family Dependent [id number] BCBS/[employer] [id number] Family Dependent [id number] EXCELLUS BCBS FEDERAL [id number] WI2 [id number] BCBS/[employer] Commercial [id number] Family Dependent [id number] [employer] Other 0 [id number] Self 0 [employer] Other 0 [id number] Self 0 Problems, Conditions, and Diagnoses Code Display Name Description Problem Type Effective Dates Data Source(s) M27.2 [id number] Osteomyelitis, jaw acute Problem 07/18/2020 12:00:00 AM EDT eCW1 ([facility]) R21 [id number] Rash and nonspecific skin eruption Proble m 07/18/2020 12:00:00 AM EDT eCW1 ([facility]) A49.01 [id number] Methicillin susceptible Staphylo coccus aureus infection Problem 07/18/2020 12:00:00 AM EDT eCW1 ([facility]) L40.9 [id number] Psoriasis Problem 06/27/2020 12:00:00 AM ED T eCW1 ([facility]) [id number] Tobacco user Tobacco user Problem 12/09/2019 12:00:00 A M EDT [facility] ([facility]) [id number] Anxiety Anxiety Problem 12/09/2019 12:00:00 AM ED T [facility] ([facility]) [id number] Tremor Tremor Problem 12/09/2019 12:00:00 AM ED T [facility] ([facility]) Surgeries/Procedures Procedure Description Date Indications Data Source(s) OFFICE OUTPATIENT VISIT 15 MINUTES 11/13/2020 12:00:00 AM EDT [facility] ([facility]) TOBACCO USE CESSATION INTERMEDIATE 3-10 MINUTES 2020 12:00:00 AM EDT [facility] ([facility]) OFFICE OUTPATIENT VISIT 15 MINUTES 10/18/2020 12:00:00 AM EDT [facility] ([facility], ) TOBACCO USE CESSATION INTERMEDIATE 3-10 MINUTES 2020 12:00:00 AM EDT [facility] ([facility], ) OFFICE OUTPATIENT VISIT 15 MINUTES 09/21/2020 12:00:00 AM EDT [facility] ([facility]) OFFICE OUTPATIENT VISIT 25 MINUTES 09/07/2020 12:00:00 AM EDT [facility] ([facility]) OFFICE OUTPATIENT NEW 30 MINUTES 09/06/2020 12:00:00 A M EDT [facility] ([facility], ) OFFICE OUTPATIENT VISIT 15 MINUTES 08/22/2020 12:00:00 AM EDT [facility] ([facility]) PERIODIC PREVENTIVE MED EST PATIENT 40-64YRS 12:00:00 AM EDT [facility] ([facility]) OFFICE OUTPATIENT VISIT 25 MINUTES 08/21/2020 12:00:00 AM EDT [facility] ([facility]) OFFICE OUTPATIENT NEW 45 MINUTES 07/20/2020 12:00:00 A M EDT [facility] ([facility]) OFFICE OUTPATIENT VISIT 25 MINUTES 07/18/2020 12:00:00 AM EDT [facility] ([facility]) OFFICE OUTPATIENT VISIT 25 MINUTES 06/20/2020 12:00:00 AM EDT [facility] ([facility]) OFFICE OUTPATIENT VISIT 25 MINUTES 06/14/2020 12:00:00 AM EDT [facility] ([facility]) Inject/Drain Arthrocentesis Major Joint/Bursa/Ganglion Cyst 11/25/2019 12:00:00 AM EDT [facility] ([facility]) X-Ray Shoulder Complete 11/25/2019 12:00:00 AM EDT [facility] ([facility], ) X-Ray Shoulder Complete 11/25/2019 12:00:00 AM EDT [facility] ([facility], ) Results ID Date Data Source [id number] 08/21/2020 08:10:00 AM EDT [facility] ([facility]) Name Value Range Interpretation Code Description Data Johanny rce(s) Supporting Document(s) Cholesterol [Mass/volume] in Serum or Plasma 232 mg/dL 100 -199 Above high normal [facility] ([facility]) Laboratory test finding (navigational concept) Laboratory test result [facility] ([facility]) Triglyceride [Mass/volume] in Serum or Plasma 162 mg/dL 0-149 Above high normal [facility] ([facility]) ID Date Data Source [id number] 08/21/2020 08:10:00 AM EDT [facility] ([facility]) Name Value Range Interpretation Code Description Data Johanny rce(s) Supporting Document(s) Bilirubin.total [Mass/volume] in Serum or Plasma 0.3 mg/dL 0.0-1.2 [facility] ([facility]) Aspartate aminotransferase [Enzymatic activity/volume] in Serum or Plasma 21 IU/L 0-40 [facility] ([facility]) Alkaline phosphatase [Enzymatic activity/volume] in Serum or Plasma 66 IU/L 48-121 [facility] ([facility]) Alanine aminotransferase [Enzymatic activity/volume] in Seru m or Plasma 26 IU/L 0-44 [facility] ID Date Data Source [id number] 07/24/2020 07:53:00 AM EDT [facility] ([facility]) Name Value Range Interpretation Code Description Data Johanny rce(s) Supporting Document(s) Laboratory test finding (navigational concept) Laboratory test result [facility] ([facility]) Will start Soriatane 25 mg daily. Follow up in 30 days with fasting labs. ID Date Data Source [id number] 07/24/2020 07:53:00 AM EDT [facility] ([facility]) Name Value Range Interpretation Code Description Data Johanny rce(s) Supporting Document(s) Glucose [Mass/volume] in Serum or Plasma 117 mg/dL 65-99 Above high normal [facility] ([facility]) Will start Soriatane 25 mg daily. Follow up in 30 days with fasting labs. Urea nitrogen [Mass/volume] in Serum or Plasma 21 mg/dL 6-24 [facility] ([facility]) Will start Soriatane 25 mg daily. Follow up in 30 days with fasting labs. Creatinine [Mass/volume] in Serum or Plasma 0.89 mg/dL 0.76-1.27 [facility] ([facility]) Will start Soriatane 25 mg daily. Follow up in 30 days with fasting labs. eGFR If Africn Am 119 mL/min/1.73 [facility] ([facility]) Will start Soriatane 25 mg daily. Follow up in 30 days with fasting labs. eGFR If NonAfricn Am 103 mL/min/1.73 [facility] ([facility]) Will start Soriatane 25 mg daily. Follow up in 30 days with fasting labs. Sodium [Moles/volume] in Serum or Plasma 139 mmol/L 134-144 [facility] ([facility]) Will start Soriatane 25 mg daily. Follow up in 30 days with fasting labs. Potassium [Moles/volume] in Serum or Plasma 4.8 mmol/L 3.5-5.2 [facility] ([facility]) Will start Soriatane 25 mg daily. Follow up in 30 days with fasting labs. Carbon dioxide, total [Moles/volume] in Serum or Plasma 20 mmol/L 20 -29 [facility] ([facility]) Will start Soriatane 25 mg daily. Follow up in 30 days with fasting labs. Chloride [Moles/volume] in Serum or Plasma 107 mmol/L 96-106 Above high normal [facility] ([facility]) Will start Soriatane 25 mg daily. Follow up in 30 days with fasting labs. Calcium [Mass/volume] in Serum or Plasma 8.9 mg/dL 8.7-10.2 [facility] ([facility]) Will start Soriatane 25 mg daily. Follow up in 30 days with fasting labs. Protein [Mass/volume] in Serum or Plasma 6.6 g/dL 6.0-8.5 [facility] ([facility]) Will start Soriatane 25 mg daily. Follow up in 30 days with fasting labs. Albumin [Mass/volume] in Serum or Plasma 4.3 g/dL 4.0-5.0 [facility] ([facility]) Will start Soriatane 25 mg daily. Follow up in 30 days with fasting labs. Albumin/Globulin [Mass Ratio] in Serum or Plasma 1.9 1.2-2.2 [facility] ([facility]) Will start Soriatane 25 mg daily. Follow up in 30 days with fasting labs. Globulin [Mass/volume] in Serum by calculation 2.3 g/dL 1.5-4.5 [facility] ([facility]) Will start Soriatane 25 mg daily. Follow up in 30 days with fasting labs. Bilirubin.total [Mass/volume] in Serum or Plasma Laboratory test result 0.0-1.2 [facility] ([facility]) Will start Soriatane 25 mg daily. Follow up in 30 days with fasting labs. Aspartate aminotransferase [Enzymatic activity/volume] in Serum or Plasma 16 IU/L 0-40 [facility] Will start Soriatane 25 mg daily. Follow up in 30 days with fasting labs. Alkaline phosphatase [Enzymatic activity/volume] in Serum or Plasma 69 IU/L 48-121 [facility] ([facility]) Will start Soriatane 25 mg daily. Follow up in 30 days with fasting labs. Alanine aminotransferase [Enzymatic activity/volume] in Seru m or Plasma 19 IU/L 0-44 [facility] ([facility]) Will start Soriatane 25 mg daily. Follow up in 30 days with fasting labs. ID Date Data Source [id number] 07/24/2020 07:53:00 AM EDT [facility] ([facility]) Name Value Range Interpretation Code Description Data Johanny rce(s) Supporting Document(s) Leukocytes [#/volume] in Blood by Automated count 8.0 x10E3/uL 3.4-10 .8 [facility] ([facility]) Will start Soriatane 25 mg daily. Follow up in 30 days with fasting labs. Erythrocytes [#/volume] in Blood by Automated count 4.80 x10E6/uL 4.1 4-5.80 [facility] ([facility]) Will start Soriatane 25 mg daily. Follow up in 30 days with fasting labs. Hematocrit [Volume Fraction] of Blood by Automated count 44.2 % 3 7.5-51.0 [facility] ([facility]) Will start Soriatane 25 mg daily. Follow up in 30 days with fasting labs. Hemoglobin [Mass/volume] in Blood 14.2 g/dL 13.0-17.7 [facility] ([facility]) Will start Soriatane 25 mg daily. Follow up in 30 days with fasting labs. Erythrocyte mean corpuscular volume [Entitic volume] by Auto mated count 92 fL 79-97 [facility] ([facility]) Will start Soriatane 25 mg daily. Follow up in 30 days with fasting labs. Erythrocyte mean corpuscular hemoglobin concentration [Mass/volume] by Automated count 32.1 g/dL 31.5-35.7 [facility] ([facility]) Will start Soriatane 25 mg daily. Follow up in 30 days with fasting labs. Erythrocyte mean corpuscular hemoglobin [Entitic mass] by Automated count 29.6 pg 26.6-33.0 [facility] ([facility]) Will start Soriatane 25 mg daily. Follow up in 30 days with fasting labs. Erythrocyte distribution width [Ratio] by Automated count 13.2 % 11.6-15.4 MEDENT ([facility]) Will start Soriatane 25 mg daily. Follow up in 30 days with fasting labs. Platelets [#/volume] in Blood by Automated count 312 x10E3/uL 150-450 MED[facility] ([facility]) Will start Soriatane 25 mg daily. Follow up in 30 days with fasting labs. Lymphocytes/100 leukocytes in Blood by Automated count 30 % [facility] ([facility]) Will start Soriatane 25 mg daily. Follow up in 30 days with fasting labs. Neutrophils/100 leukocytes in Blood by Automated count 55 % MED[facility] ([facility]) Will start Soriatane 25 mg daily. Follow up in 30 days with fasting labs. Basophils/100 leukocytes in Blood by Automated count 1 % [facility] ([facility]) Will start Soriatane 25 mg daily. Follow up in 30 days with fasting labs. Eosinophils/100 leukocytes in Blood by Automated count 6 % [facility]) Will start Soriatane 25 mg daily. Follow up in 30 days with fasting labs. Monocytes/100 leukocytes in Blood by Automated count 8 % [facility] ([facility]) Will start Soriatane 25 mg daily. Follow up in 30 days with fasting labs. Neutrophils [#/volume] in Blood by Automated count 4.4 x10E3/uL 1.4-7 .0 [facility] ([facility]) Will start Soriatane 25 mg daily. Follow up in 30 days with fasting labs. Immature cells [#/volume] in Blood Laboratory test result [facility] ([facility]) Will start Soriatane 25 mg daily. Follow up in 30 days with fasting labs. Lymphocytes [#/volume] in Blood 2.4 x10E3/uL 0.7-3.1 [facility] ([facility]) Will start Soriatane 25 mg daily. Follow up in 30 days with fasting labs. Monocytes [#/volume] in Blood 0.6 x10E3/uL 0.1-0.9 [facility] ([facility]) Will start Soriatane 25 mg daily. Follow up in 30 days with fasting labs. Basophils [#/volume] in Blood by Automated count 0.1 x10E3/uL 0.0-0.2 [facility] ([facility]) Will start Soriatane 25 mg daily. Follow up in 30 days with fasting labs. Eosinophils [#/volume] in Blood by Automated count 0.5 x10E3/uL 0.0-0.4 Above high normal [facility] ([facility]) Will start Soriatane 25 mg daily. Follow up in 30 days with fasting labs. Immature granulocytes/100 leukocytes in Blood by Automated count 0 % [facility] ([facility]) Will start Soriatane 25 mg daily. Follow up in 30 days with fasting labs. Immature granulocytes [#/volume] in Blood by Automated count 0.0 x10E3/uL 0.0-0.1 [facility] ([facility]) Will start Soriatane 25 mg daily. Follow up in 30 days with fasting labs. Morphology [Interpretation] in Blood Narrative Laboratory test result [facility] ([facility]) Will start Soriatane 25 mg daily. Follow up in 30 days with fasting labs. Nucleated erythrocytes/100 leukocytes [Ratio] in Blood by Automated count Laboratory test result [facility] ([facility]) Will start Soriatane 25 mg daily. Follow up in 30 days with fasting labs. ID Date Data Source [id number] 07/24/2020 07:53:00 AM EDT [facility] ([facility]) Name Value Range Interpretation Code Description Data Johanny rce(s) Supporting Document(s) Cholesterol [Mass/volume] in Serum or Plasma 157 mg/dL 100-199 [facility] ([facility]) Will start Soriatane 25 mg daily. Follow up in 30 days with fasting labs. Triglyceride [Mass/volume] in Serum or Plasma 97 mg/dL 0-149 [facility] ([facility]) Will start Soriatane 25 mg daily. Follow up in 30 days with fasting labs. Cholesterol in HDL [Mass/volume] in Serum or Plasma 32 mg/dL Below low normal [facility] ([facility]) Will start Soriatane 25 mg daily. Follow up in 30 days with fasting labs. Laboratory test finding (navigational concept) 18 mg/dL 5-40 [facility] ([facility]) Will start Soriatane 25 mg daily. Follow up in 30 days with fasting labs. Laboratory test finding (navigational concept) Laboratory test result [facility] ([facility]) Will start Soriatane 25 mg daily. Follow up in 30 days with fasting labs. Laboratory test finding (navigational concept) 107 mg/dL 0-99 Above high normal [facility] ([facility]) Will start Soriatane 25 mg daily. Follow up in 30 days with fasting labs. ID Date Data Source ERYTHROCYTE SEDIMENTATION RATE 06/27/2020 12:00:00 AM EDT eC W1 ([facility]) Name Value Range Interpretation Code Description Data Johanny rce(s) Supporting Document(s) 2 0-15 eCW1 ([facility]) ID Date Data Source C REACTIVE PROTEIN QUANTITATIV (At [facility]) 06/27/2020 12:00 :00 AM EDT eCW1 ([facility]) Name Value Range Interpretation Code Description Data Johanny rce(s) Supporting Document(s) 0.30 0.00-0.30 eCW1 ([facility]) ID Date Data Source Comprehensive Metabolic Profile (CMP) 06/27/2020 12:00:00 AM EDT eCW1 ([facility]) Name Value Range Interpretation Code Description Data Johanny rce(s) Supporting Document(s) 23 7-18 eCW1 ([facility]) 0.91 0.70-1.30 eCW1 ([facility]) 95 70-100 eCW1 ([facility]) 4.4 3.5-5.1 eCW1 ([facility]) 105 98-107 eCW1 ([facility]) 140 136-145 eCW1 ([facility]) > 60.0 >60 eCW1 ([facility]) 8.8 8.5-10.1 eCW1 ([facility]) 38 12-78 eCW1 ([facility]) 26 21-32 eCW1 ([facility]) 10 7-37 eCW1 ([facility]) 7.4 6.4-8.2 eCW1 ([facility]) 67 45-117 eCW1 ([facility]) 0.2 0.2-1.0 eCW1 ([facility]) 3.9 3.2-5.2 eCW1 ([facility]) 1.1 eCW1 ([facility]) ID Date Data Source CBC with Differential 06/27/2020 12:00:00 AM EDT eCW1 ([facility]) Name Value Range Interpretation Code Description Data Johanny rce(s) Supporting Document(s) 14.7 4.0-10.0 eCW1 ([facility]) 16.0 13.5-17.5 eCW1 ([facility]) 92.4 80.0-96.0 eCW1 ([facility]) 5.40 4.30-6.10 eCW1 ([facility]) 49.9 42.0-52.0 eCW1 ([facility]) 32.1 32.0-36.5 eCW1 ([facility]) 29.6 27.0-33.0 eCW1 ([facility]) 13.3 11.5-14.5 eCW1 ([facility]) 324 150-450 eCW1 ([facility]) 27.6 24.0-44.0 eCW1 ([facility]) 6.7 2.0-8.0 eCW1 ([facility]) 1.6 0.0-3.0 eCW1 ([facility]) 62.6 36.0-66.0 eCW1 ([facility]) 9.2 1.5-8.5 eCW1 ([facility]) 0.7 0.0-1.0 eCW1 ([facility]) 0.2 0.0-0.5 eCW1 ([facility]) 4.1 1.5-5.0 eCW1 ([facility]) 1.0 0.0-0.8 eCW1 ([facility]) 0.1 0.0-0.2 eCW1 ([facility]) ID Date Data Source [id number] 06/14/2020 02:49:00 PM EDT MEDENT ([facility]) Name Value Range Interpretation Code Description Data Johanny rce(s) Supporting Document(s) Bacteria identified in Wound shallow by Aerobe culture Laborator y test result Normal (applies to non-numeric results) MEDENT ([facility]) <content>FULL REPORT IN LAB NOTES (eCW a nd Medent).</content>
<content></content>
<content>ORGANISM 1: STAPHYLOCOCCUS AUREUS</content>
<content></content>
<content>QUANTITY OF GROWTH MODERATE</content>
<content></content>
<content>ORGANISM 2: STAPHYLOCOCCUS SP COAG NEG</content>
<content></content>
<content> QUANTITY OF GROWTH MODERATE</content>
<content></content>
<content></content>
<content> ORGANISM 3: STAPHYLOCOCCUS CAPITIS</content>
<content></content>
<content>QUANTITY OF GROWTH FEW</content>
<content></content>
<content></content>
<content>ORGAN ISM 1: STAPHYLOCOCCUS AUREUS</content>
<content>ORGANISM 2: STAPHYLOCOCCUS SP COAG NEG</content>
<content>ORGANISM 3: STAPHYLOCOCCUS CAPITIS</content>
<content></content>
<content>STAPHYLOCOCCUS AUREUS: REACTION</content>
<content>ICR (INDUCIBLE CC RESISTANCE) IV ICR TEST RESULT</content>
<content>TETRACYCLINE PO 250 mg qid <=1 S</content>
<content> PENICILLIN G IV 1 mu q6H >=0.5 R</content>
<content>PENICILLIN G IV 1 mu q6h >=0.5 R</content>
<content>PENICILLIN G PO 250mg q6h fasting >=0.5 R</content>
<content>TRIMETHOPRIM/SULFAMETHOXAZOLE IV 160mg TMP & 800mg SMXq6h <=10 S</content>
<content>TRIMETHOPRIM/SULFAMETHOXAZOLE PO Bactrim DS Bid <=10 S</content>
<content>ERYTHROMYCIN IV 500mg q6h <=0.25 S</content>
<content> ERYTHROMYCIN PO 500mg q6h <=0.25 S</content>
<content>GENTAMICIN IV 80mg q8h <=0.5 S</content>
<content>CLINDAMYCIN IV 600mg q6h 0.25 S</content>
<content>CLINDAMYCIN PO 150mg q6h 0.25 S</content>
<content>NITROFURANTOIN PO 100mg BID <=16 S</content>
<content>OXACILLIN IV 500mg q6h 1 S</content>
<content> VANCOMYCIN IV 500mg q8h 1 S</content>
<content>LINEZOLID (ZYVOX) IV 600MG Q12HR 2 S</content>
<content>LINEZOLID (ZYVOX) PO 600MG Q12HR 2 S</content>
<content>An isolate with a (+) POSITIVE ICR test is considered</content>
<content>CLINDAMYCIN RESISTANT; however, clindamycin may still</content>
<content>be effective in some patients.</content>
<content>An isolate with a (-) NEGATIVE ICR test is considered</content>
<content>CLIDAMYCIN SENSITIVE.</content>
<content>Oxacillin result predicts susceptibility to all penicillinase-stable</content>
<content>penicillins (Nafcillin, Dicloxacilin), Cephalosporins, Carbapenems,</content>
<content>Amoxicillin/Clavulanate & Ampicillin/Sulbactam per [employer] standards.</content>
<content></content>
<content>STAPHYLOCOCCUS SP COAG NEG: REACTION</content>
<content>ICR (INDUCIBLE CC RESISTANCE) IV ICR TEST RESULT</content>
<content>TETRACYCLINE PO 250 mg qid >=16 R</content>
<content> PENICILLIN G IV 1 mu q6h <=0.03 R</content>
<content>PENICILLIN G PO 250mg q6h fasting <=0.03 R</content>
<content>TRIMETHOPRIM/SULFAMETHOXAZOLE IV 160mg TMP & 800mg SMXq6h <=10 S</content>
<content>TRIMETHOPRIM/SULFAMETHOXAZOLE PO Bactrim DS Bid <=10 S</content>
<content>ERYTHROMYCIN IV 500mg q6h >=8 R</content>
<content>ERYTHROMYCIN PO 500mg q6h >=8 R</content>
<content>GENTAMICIN IV 80mg q8h <=0.5 S</content>
<content>CLINDAMYCIN IV 600mg q6h 0.25 S</content>
<content>CLINDAMYCIN PO 150mg q6h 0.25 S</content>
<content>NITROFURANTOIN PO 100mg BID <=16 S</content>
<content>OXACILLIN IV 500mg q6h <=0.25 S</content>
<content>VANCOMYCIN IV 500mg q8h 1 S</content>
<content>LINEZOLID (ZYVOX) IV 600MG Q12HR 1 S</content>
<content>LINEZOLID (ZYVOX) PO 600MG Q12HR 1 S</content>
<content>An isolate with a (+) POSITIVE ICR test is considered</content>
<content>CLINDAMYCIN RESISTANT; however, clindamycin may still</content>
<content>be effective in some patients.</content>
<content>An isolate with a (-) NEGATIVE ICR test is considered</content>
<content>CLIDAMYCIN SENSITIVE.</content>
<content>Oxacillin result predicts susceptibility to all penicillinase-stable</content>
<content>penicillins (Nafcillin, Dicloxacilin), Cephalosporins, Carbapenems,</content>
<content>Amoxicillin/Clavulanate & Ampicillin/Sulbactam per [employer] standards.</content>
<content></content>
<content>STAPHYLOCOCCUS CAPITIS: REACTION</content>
<content>ICR (INDUCIBLE CC RESISTANCE) IV ICR TEST RESULT</content>
<content>TETRACYCLINE PO 250 mg qid >=16 R</content>
<content>PENICILLIN G IV 1 mu q6h 0.25 R</content>
<content>PENICILLIN G PO 250mg q6h fasting 0.25 R</content>
<content>TRIMETHOPRIM/SULFAMETHOXAZOLE IV 160mg TMP & 800mg SMXq6h <=10 S</content>
<content>TRIMETHOPRIM/SULFAMETHOXAZOLE PO Bactrim DS Bid <=10 S</content>
<content>ERYTHROMYCIN IV 500mg q6h >=8 R</content>
<content>ERYTHROMYCIN PO 500mg q6h >=8 R</content>
<content> GENTAMICIN IV 80mg q8h <=0.5 S</content>
<content>CLINDAMYCIN IV 600mg q6h <=0.12 I</content>
<content>CLINDAMYCIN PO 150mg q6h <=0.12 I</content>
<content>NITROFURANTOIN PO 100mg BID <=16 S</content>
<content>OXACILLIN IV 500mg q6h <=0.25 S</content>
<content>VANCOMYCIN IV 500mg q8h 1 S</content>
<content>LINEZOLID (ZYVOX) IV 600MG Q12HR 4 S</content>
<content>LINEZOLID (ZYVOX) PO 600MG Q12HR 4 S</content>
<content>An isolate with a (+) POSITIVE ICR test is considered</content>
<content>CLINDAMYCIN RESISTANT; however, clindamycin may still</content>
<content>be effective in some patients.</content>
<content>An isolate with a (-) NEGATIVE ICR test is considered</content>
<content>CLIDAMYCIN SENSITIVE.</content>
<content>Oxacillin result predicts susceptibility to all penicillinase-stable</content>
<content>penicillins (Nafcillin, Dicloxacilin), Cephalosporins, Carbapenems,</content>
<content>Amoxicillin/Clavulanate & Ampicillin/Sulbactam per [employer] standards.</content>
<content></content> Procedure Social History No Information Vital Signs ID Date Data Source UNK Name Value Range Interpretation Code Description Data Source(s) Systolic blood pressure 124 mm[Hg] 124 mm[Hg] [facility] Diastolic blood pressure 70 mm[Hg] 70 mm[Hg] [facility]) [place] body weight 166 [lb_av] 166 [lb_av] MED[facility] T ([facility]) Body height 70.2 [in_i] 70.2 [in_i] [facility] ([facility]) 5'10.20" Body weight 255.50 [lb_av] 255.50 [lb_av] MEDEN T ([facility]) Body mass index (BMI) [Ratio] 36.4 kg/m2 36.4 k g/m2 [facility] ([facility]) Heart rate 77 /min 77 /min [facility] ([facility]) Respiratory rate 14 /min 14 /min [facility] ( [facility]) Body temperature 97.4 [degF] 97.4 [degF] [facility] ([facility]) Oxygen saturation in Arterial blood by Pulse oximetry 96 % 96 % [facility] ([facility]) Systolic blood pressure 124 mm[Hg] 124 mm[Hg] [facility], ) Diastolic blood pressure 70 mm[Hg] 70 mm[Hg] [facility] ([facility], ) Heart rate 71 /min 71 /min [facility] ([facility], ) Oxygen saturation in Arterial blood by Pulse oximetry 97 % 97 % [facility] ([facility], ) Body height 72 [in_i] 72 [in_i] [facility] ([facility], ) 6'0" Body weight 251.12 [lb_av] 251.12 [lb_av] MEDEN T ([facility], ) Body mass index (BMI) [Ratio] 34.1 kg/m2 34.1 k g/m2 [facility] ([facility]) [place] body weight 178 [lb_av] 178 [lb_av] MEDEN T ([facility]) Body weight 113.910 kg 113.910 kg [facility] ([facility]) Body surface area Derived from formula 2.35 m2 2.35 m2 [facility] ([facility]) Diastolic blood pressure 70 mm[Hg] 70 mm[Hg] [facility] ([facility]) Body weight 250.00 [lb_av] 250.00 [lb_av] MEDEN T ([facility]) Systolic blood pressure 130 mm[Hg] 130 mm[Hg] M [facility] ([facility]) Body height 71 [in_i] 71 [in_i] [facility] ([facility]) 5'11" Body mass index (BMI) [Ratio] 34.9 kg/m2 34.9 k g/m2 [facility] ([facility]) Diastolic blood pressure 82 mm[Hg] 82 mm[Hg] [facility] ([facility]) Systolic blood pressure 122 mm[Hg] 122 mm[Hg] M [facility] ([facility]) Respiratory rate 17 /min 17 /min [facility] ( [facility]) Body weight 250.00 [lb_av] 250.00 [lb_av] MEDEN T ([facility]) Systolic blood pressure 128 mm[Hg] 128 mm[Hg] [facility] ([facility]) Diastolic blood pressure 86 mm[Hg] 86 mm[Hg] [facility] ([facility]) Body temperature 98.4 [degF] 98.4 [degF] [facility] ([facility]) Body height 72 [in_i] 72 [in_i] [facility] ([facility]) 6'0" Body weight 250.06 [lb_av] 250.06 [lb_av] MEDEN T ([facility]) Body mass index (BMI) [Ratio] 33.9 kg/m2 33.9 k g/m2 [facility] ([facility]) [place] body weight 178 [lb_av] 178 [lb_av] MEDEN T ([facility]) Body weight 113.428 kg 113.428 kg [facility] ([facility]) Body surface area Derived from formula 2.34 m2 2.34 m2 MEDRAJ ([facility], ) Body weight 250 [lb_av] 250 [lb_av] eCW1 ([facility]) Body height [in_i] eCW1 ([facility]) Body mass index (BMI) [Ratio] 35.87 kg/m2 35.87 kg/m2 eCW1 ([facility]) Body temperature 97.8 [degF] 97.8 [degF] eCW1 ( [facility]) Heart rate 76 /min 76 /min eCW1 ([facility]) Respiratory rate 18 /min 18 /min eCW1 ([facility]) Systolic blood pressure 128 mm[Hg] 128 mm[Hg] e CW1 ([facility]) Diastolic blood pressure 78 mm[Hg] 78 mm[Hg] eCW1 ([facility]) Heart rate 83 /min 83 /min MATILDE ([facility]) Systolic blood pressure 128 mm[Hg] 128 mm[Hg] Prema ROY ([facility]) Diastolic blood pressure 68 mm[Hg] 68 mm[Hg] [facility] ([facility]) Body height 70.2 [in_i] 70.2 [in_i] [facility] ([facility]) 5'10.20" Body weight 252.12 [lb_av] 252.12 [lb_av] MEDEN T ([facility]) Body mass index (BMI) [Ratio] 36.0 kg/m2 36.0 k g/m2 MEDRAJ ([facility]) Respiratory rate 14 /min 14 /[facility]) Body temperature 97.8 [degF] 97.8 [degF] MATILDE ([facility]) Oxygen saturation in Arterial blood by Pulse oximetry 98 % 98 % [facility] ([facility]) [place] body weight 166 [lb_av] 166 [lb_av] MEDEN T ([facility]) Systolic blood pressure 116 mm[Hg] 116 mm[Hg] M MANUELA ([facility]) Diastolic blood pressure 66 mm[Hg] 66 mm[Hg] MEDENT ([facility]) Body weight 250.00 [lb_av] 250.00 [lb_av] MEDEN T ([facility]) Respiratory rate 18 /min 18 /min [facility] ( [facility] Body weight 242 [lb_av] 242 [lb_av] eCW1 ([facility]) Body height [in_i] eCW1 ([facility]) Body mass index (BMI) [Ratio] 34.72 kg/m2 34.72 kg/m2 eCW1 ([facility]) Heart rate 80 /min 80 /min eCW1 ([facility]) Respiratory rate 18 /min 18 /min eCW1 ([facility]) Body temperature 97.4 [degF] 97.4 [degF] eCW1 ( [facility]) Systolic blood pressure 128 mm[Hg] 128 mm[Hg] e CW1 ([facility]) Diastolic blood pressure 76 mm[Hg] 76 mm[Hg] eCW1 ([facility]) Systolic blood pressure 132 mm[Hg] 132 mm[Hg] M EDENT ([facility]) Diastolic blood pressure 86 mm[Hg] 86 mm[Hg] MEDENT ([facility]) Body weight 250.00 [lb_av] 250.00 [lb_av] MEDEN T ([facility]) Respiratory rate 18 /min 18 /min MEDENT ( [facility]) Systolic blood pressure 132 mm[Hg] 132 mm[Hg] M EDENT ([facility]) Heart rate 78 /min 78 /min MEDENT ([facility]) Respiratory rate 18 /min 18 /min MEDENT ( [facility]) Body temperature 98.0 [degF] 98.0 [degF] MED[facility] ([facility]) Diastolic blood pressure 76 mm[Hg] 76 mm[Hg] [facility] ([facility]) Body height 70.2 [in_i] 70.2 [in_i] MEDENT ([facility]) 5'10.20" Body weight 251.12 [lb_av] 251.12 [lb_av] MEDEN T ([facility]) Body mass index (BMI) [Ratio] 35.8 kg/m2 35.8 k g/m2 MED[facility] ([facility]) Oxygen saturation in Arterial blood by Pulse oximetry 97 % 97 % [facility] ([facility]) [place] body weight 166 [lb_av] 166 [lb_av] MEDEN T ([facility]) Body weight 250 [lb_av] 250 [lb_av] eCW1 ([facility]) Body height [in_i] eCW1 ([facility]) Body mass index (BMI) [Ratio] 35.87 kg/m2 35.87 kg/m2 eCW1 ([facility]) Heart rate 78 /min 78 /min eCW1 ([facility]) Respiratory rate 18 /min 18 /min eCW1 ([facility]) Body temperature 97.4 [degF] 97.4 [degF] eCW1 ( [facility]) Systolic blood pressure 138 mm[Hg] 138 mm[Hg] e CW1 ([facility]) Diastolic blood pressure 78 mm[Hg] 78 mm[Hg] eCW1 ([facility]) Body weight 247 [lb_av] 247 [lb_av] eCW1 ([facility]) Body height [in_i] eCW1 ([facility]) Body mass index (BMI) [Ratio] 35.44 kg/m2 35.44 kg/m2 eCW1 ([facility]) Heart rate 75 /min 75 /min eCW1 ([facility]) Respiratory rate 18 /min 18 /min eCW1 ([facility]) Body temperature 98.1 [degF] 98.1 [degF] eCW1 ( [facility]) Systolic blood pressure 136 mm[Hg] 136 mm[Hg] e CW1 ([facility]) Diastolic blood pressure 78 mm[Hg] 78 mm[Hg] eCW1 ([facility]) Body mass index (BMI) [Ratio] 35.6 kg/m2 35.6 k g/m2 MED[facility] ([facility]) Heart rate 73 /min 73 /min MED[facility] ([facility]) Body temperature 96.7 [degF] 96.7 [degF] MEDENT ([facility]) Systolic blood pressure 138 mm[Hg] 138 mm[Hg] M EDENT ([facility]) Diastolic blood pressure 82 mm[Hg] 82 mm[Hg] MEDENT ([facility]) Body height 70.2 [in_i] 70.2 [in_i] MEDENT ([facility]) " Body weight 249.50 [lb_av] 249.50 [lb_av] MEDEN T ([facility]) Respiratory rate 18 /min 18 /min MEDENT ( [facility]) Oxygen saturation in Arterial blood by Pulse oximetry 99 % 99 % MEDENT ([facility]) [place] body weight 166 [lb_av] 166 [lb_av] MEDEN T ([facility]) Systolic blood pressure 134 mm[Hg] 134 mm[Hg] M EDENT ([facility]) Diastolic blood pressure 76 mm[Hg] 76 mm[Hg] MEDENT ([facility]) Body height 70.2 [in_i] 70.2 [in_i] MEDENT ([facility]) " Body weight 248.50 [lb_av] 248.50 [lb_av] MEDEN T ([facility]) Body mass index (BMI) [Ratio] 35.4 kg/m2 35.4 k g/m2 MEDENT ([facility]) Heart rate 88 /min 88 /min MEDENT ([facility]) Respiratory rate 18 /min 18 /min MEDENT ( [facility]) Body temperature 98.6 [degF] 98.6 [degF] MEDENT ([facility]) Oxygen saturation in Arterial blood by Pulse oximetry 95 % 95 % MEDENT ([facility]) [place] body weight 166 [lb_av] 166 [lb_av] MEDEN T ([facility]) Body temperature 97.1 [degF] 97.1 [degF] MEDENT ([facility]) Body height 72 [in_i] 72 [in_i] MEDENT ([facility]) 6'0" Body weight 253.00 [lb_av] 253.00 [lb_av] MEDEN T ([facility]) Body mass index (BMI) [Ratio] 34.3 kg/m2 34.3 k g/m2 [facility] ([facility]) [place] body weight 178 [lb_av] 178 [lb_av] MEDEN T ([facility]) Body weight 114.761 kg 114.761 kg MEDENT ([facility]) Body surface area Derived from formula 2.35 m2 2.35 m2 [facility] ([facility]) Body height 72 [in_i] 72 [in_i] MEDENT ([facility]) 6'0" Body temperature 97.1 [degF] 97.1 [degF] [facility] ([facility]) Body weight 253.00 [lb_av] 253.00 [lb_av] MEDEN T ([facility]) Body mass index (BMI) [Ratio] 34.3 kg/m2 34.3 k g/m2 [facility] ([facility]) [place] body weight 178 [lb_av] 178 [lb_av] MEDEN T ([facility]) Body weight 114.761 kg 114.761 kg [facility] ([facility]) Body surface area Derived from formula 2.35 m2 2.35 m2 [facility] ([facility]) Systolic blood pressure 126 mm[Hg] 126 mm[Hg] EDENT ([facility]) Diastolic blood pressure 74 mm[Hg] 74 mm[Hg] MEDENT ([facility]) Body height 70.2 [in_i] 70.2 [in_i] MEDENT ([facility]) 5'10.20" Body weight 251.12 [lb_av] 251.12 [lb_av] MEDEN T ([facility]) Body mass index (BMI) [Ratio] 35.8 kg/m2 35.8 k g/m2 MEDENT ([facility]) Heart rate 86 /min 86 /min MEDENT ([facility]) Respiratory rate 18 /min 18 /min MEDENT ( [facility]) Body temperature 97.5 [degF] 97.5 [degF] MEDENT ([facility]) Oxygen saturation in Arterial blood by Pulse oximetry 97 % 97 % MEDENT ([facility]) [place] body weight 166 [lb_av] 166 [lb_av] MEDEN T ([facility]) Body temperature 97.5 [degF] 97.5 [degF] MEDENT ([facility], ) Systolic blood pressure 132 mm[Hg] 132 mm[Hg] M EDENT ([facility]) Body weight 247.56 [lb_av] 247.56 [lb_av] MEDEN T ([facility]) Body mass index (BMI) [Ratio] 35.3 kg/m2 35.3 k g/m2 MEDENT ([facility]) Heart rate 96 /min 96 /min MEDENT ([facility]) Respiratory rate 18 /min 18 /min MEDENT ( [facility]) Body temperature 98.1 [degF] 98.1 [degF] MEDENT ([facility]) Oxygen saturation in Arterial blood by Pulse oximetry 97 % 97 % [facility] ([facility]) [place] body weight 166 [lb_av] 166 [lb_av] MEDEN T ([facility]) Diastolic blood pressure 78 mm[Hg] 78 mm[Hg] MEDENT ([facility]) Body height 70.2 [in_i] 70.2 [in_i] MEDENT ([facility]) 5'10.20" Heart rate 80 /min 80 /min MEDENT ([facility], ) Body weight 251.25 [lb_av] 251.25 [lb_av] MEDEN T ([facility], ) Body mass index (BMI) [Ratio] 35.0 kg/m2 35.0 k g/m2 MEDENT ([facility] ) [place] body weight 172 [lb_av] 172 [lb_av] MEDEN T ([facility]) Body weight 113.967 kg 113.967 kg [facility] ([facility]) Systolic blood pressure 118 mm[Hg] 118 [facility]Hg] [facility] Diastolic blood pressure 78 mm[Hg] 78 mm[Hg] [facility] ([facility]) Oxygen saturation in Arterial blood by Pulse oximetry 98 % 98 % [facility] ([facility]) Body temperature 96.9 [degF] 96.9 [degF] [facility] ([facility]) Body height 71 [in_i] 71 [in_i] [facility] ([facility]) 5'11" Patient Treatment Plan of Care Planned Activity Planned Date Details Description Data Source (s) Metronidazole 500 MG Oral Tablet 08/01/2020 12:00:00 AM EDT eCW1 ([facility]) cefdinir 300 MG Oral Capsule 08/01/2020 12:00:00 AM EDT eCW1 ([facility]) moxifloxacin 400 MG Oral Tablet 07/18/2020 12:00:00 AM EDT eCW1 ([facility]) Ampicillin 2000 MG / Sulbactam 1000 MG Injection [Unas yn] 06/27/2020 12:00:00 AM EDT eCW1 ([facility]) Ampicillin 2000 MG / Sulbactam 1000 MG Injection [Unas yn] 06/27/2020 12:00:00 AM EDT eCW1 ([facility]) Ampicillin 2000 MG / Sulbactam 1000 MG Injection [Unas yn] 06/27/2020 12:00:00 AM EDT eCW1 ([facility]) Ampicillin 2000 MG / Sulbactam 1000 MG Injection [Unas yn] 06/27/2020 12:00:00 AM EDT eCW1 ([facility]) 24 HR venlafaxine 150 MG Extended Release Oral Tablet 05/07/2019 12:00:00 AM EDT GARCIA ([facility])
--- OUTSIDE RECORDS SUMMARY | 2020-11-30 06:57 | CCD | Continuity of Care Document ---
Author Author Manuel JOHNSON MD Organization Unknown Address [address], [address] [place] [address] Phone [phone] Care Team Providers Care Software Developer Manager Name Role Phone AUTM Unavailable Lilly Swain [...] lb BMI (Body Mass Index) 33.9 kg/m2 [place] Body Weight 178 lb Weight 113.428 kg BSA (Body Surface Area) 2.34 m2 02/22/2020 3:30pm Body Temperature 97.1 F Height 72 inches 6'0" Weight 253.00 lb BMI (Body Mass Index) 34.3 kg/m2 [place] Body Weight 178 lb Weight 114.761 kg BSA (Body Surface Area) 2.35 m2 Results Description No Information Available Procedures Date Code Description Status 09/06/2020 21228 Office/Outpatient New Low MDM 30 -44 Minutes Completed Medical Devices Description No Information Available Encounters Type Date Location Provider Dx Diagnosis Office Visit 09/06/2020 1:00p [facility] PATRICK Christianson Z12.11 Encounter for screening for malignant ne oplasm of colon G47.33 Obstructive sleep apnea (marija lt) (pediatric) Z68.33 Body mass index [BMI] 33.0-3 3.9, adult Assessments Date Code Description Provider 09/06/2020 Z12.11 Encounter for screening for shea gnant neoplasm of colon PATRICK Smith 09/06/2020 G47.33 Obstructive sleep apnea (adult) (pediatric) PATRICK Smith 09/06/2020 Z68.33 Body mass index [BMI] 33.0-33.9, adult PATRICK Smith Plan of Treatment Future Appointment(s):* 12/21/2020 9:00 am - PATRICK Smith at [facility] * 11/30/2020 8:15 am - Carlito Skinner M.D. at [facility] * 10/30/2020 3:45 pm - Vanessa Vickers, N.P. at [facility] Pulmonary/Thoracic 09/06/2020 - PATRICK Smith* Z12.11 Encounter for screening for malignant neoplasm of colon * G47.33 Obstructive sleep apnea (adult) (pediatric) * Z68.33 Body mass index [BMI] 33.0-33.9, adult Functional Status Functional Condition Comment Date Status Independent with all ADL's Activ e Independent with all IADL's Acti ve Mental Status Mental Condition Comment Date Status None Active Can understand information Activ e Referrals Refer to Reason for Referral Status Appt Date Carlito Skinner M.D. Scheduled 09/06/2020 [facility] [address] [place] [id number] [phone]
--- OUTSIDE RECORDS SUMMARY | 2020-11-30 06:57 | CCD | Continuity of Care Document ---
Author Author Manuel ESPINOZA F.N.P. Organization Unknown Address [address] [place] [address] Phone [phone] Care Team Providers Care Closed Circuit Screen Watcher Name Role Phone Lilly Swain DO AUTM [phone] Problems Description No Information Available Social History Type Date Description Comments Sex Unknown ETOH Use Rarely consumes alcohol Tobacco Use Start: Unknown Patient is a current smoker, smo kes every day 1 PPD Sun Exposure excessive amount of sun exposure Sun Exposure Has never used tanning bed Sun Exposure Has experienced blistering from sunburns Sun Exposure Does not use sunscreen Allergies, Adverse Reactions, Alerts Description No Known Drug Allergies Medications Active Medications SIG Qnty Indications Ordering Provide r Date Terbinafine HCL 250mg Tablets 1 by mouth every day 30tabs B35.4 Mickie Espinoza, F.N.P. 2020 Fluticasone Propionate 0.05% Cream apply to face sparingly twice a day x 3 days then as needed 15gm L24.89 Mickie Espinoza, F.N.P. 08/21/2020 Acitretin 25mg Capsules take 1 capsule daily 30caps Mickie Espinoza, F.N.P. 2020 Nystatin [id number]/GM Cream apply to buttocks twice a day until clear then as needed 60gm B37.2 TONIA Atkinson 07/20/2020 Propranolol HCL Unknown 0 Clobetasol Propionate Unknown Immunizations Description No Information Available Vital Signs Date Vital Result Comment 09/07/2020 4:17pm BP Systolic 122 mmHg BP Diastolic 82 mmHg Weight 250.00 lb Respiratory Rate 17 /min 08/21/2020 7:57am BP Systolic 116 mmHg BP Diastolic 66 mmHg Weight 250.00 lb Respiratory Rate 18 /min Results Test Acquired Date Facility Test Result H/L Range Note Aip+Alt+Ast+Tbili 08/21/2020 [facility] Bilirubin, Total 0.3 mg/dL 0.0-1.2 Alkaline Phosphatase 66 IU/L 48-121 Ast (Sgot) 21 IU/L 0-40 Alt (SGPT) 26 IU/L 0-44 Laboratory test finding 08/21/2020 [facility] Cholesterol, Total 232 mg/dL High 100-199 Triglycerides 162 mg/dL High 0-149 PDF [id number] SEE IMAGE Lipid Panel 07/24/2020 [facility] Cholesterol, Total 157 mg/dL 100-199 1 Triglycerides 97 mg/dL 0-149 HDL Cholesterol 32 mg/dL Low >39 VLDL Cholesterol Damon 18 mg/dL 5-40 LDL Chol Calc (Nih) 107 mg/dL High 0-99 Comment: TNP CBC With Differential/Platelet 07/24/2020 [facility] WBC 8.0 x10E3/uL 3.4-10.8 RBC 4.80 x10E6/uL 4.14-5.80 Hemoglobin 14.2 g/dL 13.0-17.7 Hematocrit 44.2 % 37.5-51.0 MCV 92 fL 79-97 MCH 29.6 pg 26.6-33.0 MCHC 32.1 g/dL 31.5-35.7 RDW 13.2 % 11.6-15.4 Platelets 312 x10E3/uL 150-450 Neutrophils 55 % Not Estab. Lymphs 30 % Not Estab. Monocytes 8 % Not Estab. Eos 6 % Not Estab. Basos 1 % Not Estab. Immature Cells TNP Neutrophils (Absolute) 4.4 x10E3/uL 1.4-7.0 Lymphs (Absolute) 2.4 x10E3/uL 0.7-3.1 Monocytes(Absolute) 0.6 x10E3/uL 0.1-0.9 Eos (Absolute) 0.5 x10E3/uL High 0.0-0.4 Baso (Absolute) 0.1 x10E3/uL 0.0-0.2 Immature Granulocytes 0 % Not Estab. Immature Grans (Abs) 0.0 x10E3/uL 0.0-0.1 [facility] Hematology Comments: TNP CMP14 07/24/2020 [facility] Glucose 117 mg/dL High 65-99 BUN 21 mg/dL 6-24 Creatinine 0.89 mg/dL 0.76-1.27 eGFR If NonAfricn Am 103 mL/min/1.73 >59 eGFR If Africn Am 119 mL/min/1.73 >59 2 Sodium 139 mmol/L 134-144 Potassium 4.8 mmol/L 3.5-5.2 Chloride 107 mmol/L High 96-106 Carbon Dioxide, Total 20 mmol/L 20-29 Calcium 8.9 mg/dL 8.7-10.2 Protein, Total 6.6 g/dL 6.0-8.5 Albumin 4.3 g/dL 4.0-5.0 Globulin, Total 2.3 g/dL 1.5-4.5 A/G Ratio 1.9 1.2-2.2 Bilirubin, Total <0.2 mg/dL 0.0-1.2 Alkaline Phosphatase 69 IU/L 48-121 Ast (Sgot) 16 IU/L 0-40 Alt (SGPT) 19 IU/L 0-44 Laboratory test finding 07/24/2020 [facility] PDF [id number] SEE IMAGE 1 Will start Soriatane 25 mg d aily. Follow up in 30 days with fasting labs. 2 [facility] currently reports eGFR in compliance with the current recommendations of the National Kidney Foundation. [facility] will update reporting as new guidelines are published from the NKF-ASN Task force. Procedures Date Code Description Status 09/07/2020 17980 Office/Outpatient Established Mo d MDM 30-39 Min Completed 08/21/2020 08715 Office/Outpatient Established Mo d MDM 30-39 Min Completed 07/20/2020 92340 Office/Outpatient New Moderate M DM 45-59 Minutes Completed Medical Devices Description No Information Available Encounters Type Date Location Provider Dx Diagnosis Office Visit 09/07/2020 4:15p Main Office Eleni VerdinN.P. B35.4 Tinea corporis B35.3 Tinea pedis L40.0 Psoriasis vulgaris R20.8 Other disturbances of skin s ensation Office Visit 08/21/2020 8:00a Main Office Mickie O'lisa, F.N.P. L40.0 Psoriasis vulgaris L24.89 Irritant contact dermatitis due to other agents Office Visit 07/20/2020 2:00p Main Office GeniTONIA Yun D 22.5 Melanocytic nevi of trunk L81.4 Other melanin hyperpigmentat ion L82.1 Other seborrheic keratosis L40.0 Psoriasis vulgaris B37.2 Candidiasis of skin and nail Z12.83 Encounter for screening for malignant neoplasm of skin Assessments Date Code Description Provider 09/07/2020 B35.4 Tinea corporis Mickie March n, F.N.P. 09/07/2020 B35.3 Tinea pedis Mickie wagner, F.N.P. 09/07/2020 L40.0 Psoriasis vulgaris Mickie schmid, F.N.P. 09/07/2020 R20.8 Other disturbances of skin sensa tion Mickie Espinoza, F.N.P. 08/21/2020 L40.0 Psoriasis vulgaris Mickie schmid, F.N.P. 08/21/2020 L24.89 Irritant contact dermatitis due to other agents Mickie Espinoza, F.N.P. 07/20/2020 D22.5 Melanocytic nevi of trunk GeniTONIA Yun 07/20/2020 L81.4 Other melanin hyperpigmentation GeniTONIA Yun 07/20/2020 L82.1 Other seborrheic keratosis TONIA Regan 07/20/2020 L40.0 Psoriasis vulgaris TONIA Hicks 07/20/2020 B37.2 Candidiasis of skin and nail TONIA Ozuna 07/20/2020 Z12.83 Encounter for screening for shea gnant neoplasm of skin TONIA Atkinson Plan of Treatment Future Appointment(s):* 09/21/2020 8:15 am - Mickie Espinoza, F.N.P. at Main Office * 10/23/2020 9:00 am - Mickie Espinoza, F.N.P. at Main Office * 07/24/2021 8:00 am - TONIA Atkinson at Main Office 09/07/2020 - Mickie Espinoza, Luis.N.P.* B35.4 Tinea corporis* New Medication:* Terbinafine HCL 250 mg - 1 by mouth every day * Comments:* This is a deep fungal infection at this point. Will start oral antifungal. Discussed that not sure how long he will need to take but will monitor every 2 weeksStart Terbinafine 250 mg by mouth daily.Call with problems. . * B35.3 Tinea pedis* Comments:* Discussed that even though the scraping was negative from the feet I think there is a overlap of fungal on his feet as well. So even if there is underlying psoriasis the fungus needs to be treated first * L40.0 Psoriasis vulgaris* Comments:* See above * R20.8 Other disturbances of skin sensation* Comments:* See above. * Follow up:* 2 weeks - tinea follow up Cancel appt for bloodwork in 3 weeks Functional Status Description No Information Available Mental Status Description No Information Available Referrals Description No Information Available
--- OUTSIDE RECORDS SUMMARY | 2020-11-30 06:57 | CCD | Continuity of Care Document ---
Author Author Manuel ESPINOZA F.N.P. Organization Unknown Address [address], [address] [place] [address] Phone [phone] Care Team Providers Care Metal Riveter Name Role Phone Lilly Swain DO AUTM Problems Description No Information Available Social History [...] daily 30caps Mickie Espinoza, F.N.P. 2020 Nystatin [id number]/GM Cream apply to buttocks twice a day until clear then as needed 60gm B37.2 TONIA Atkinson 07/20/2020 Propranolol HCL Unknown 0 Clobetasol Propionate Unknown Immunizations Description No Information Available Vital Signs Date Vital Result Comment 09/21/2020 8:08am BP Systolic 130 mmHg BP Diastolic 70 mmHg Weight 250.00 lb Height 71 inches 5'11" BMI (Body Mass Index) 34.9 kg/m2 09/07/2020 4:17pm BP Systolic 122 mmHg BP Diastolic 82 mmHg Weight 250.00 lb Respiratory Rate 17 /min Results Test Acquired Date Facility Test Result H/L Range Note Aip+Alt+Ast+Tbili 08/21/2020 [facility] Bilirubin, Total 0.3 mg/dL 0.0-1.2 Alkaline Phosphatase 66 IU/L 48-121 Ast (Sgot) 21 IU/L 0-40 Alt (SGPT) 26 IU/L 0-44 Laboratory test finding 08/21/2020 [facility] Cholesterol, Total 232 mg/dL High 100-199 Triglycerides 162 mg/dL High 0-149 PDF [id number] SEE IMAGE Lipid Panel 07/24/2020 [facility] Cholesterol, [...] Estab. Immature Grans (Abs) 0.0 x10E3/uL 0.0-0.1 NRBC TNP Hematology Comments: TNP CMP14 07/24/2020 [facility] Glucose [...] 0-44 Laboratory test finding 07/24/2020 [facility] PDF [id number] SEE IMAGE 1 Will start Soriatane 25 mg d aily. Follow up in 30 days with fasting labs. 2 [facility] currently reports eGFR in compliance with the current recommendations of the National Kidney Foundation. [facility] will update reporting as new guidelines are published from the NKF-ASN Task force. Procedures Date Code Description Status 09/21/2020 29375 Office/Outpatient Established Lo w MDM 20-29 Min Completed 09/07/2020 02297 Office/Outpatient Established Mo d MDM 30-39 Min Completed 08/21/2020 90180 Office/Outpatient Established Mo d MDM 30-39 Min Completed 07/20/2020 63310 Office/Outpatient New Moderate M DM 45-59 Minutes Completed Medical Devices Description No Information Available Encounters Type Date Location Provider Dx Diagnosis Office Visit 09/21/2020 8:15a Main Office Mickie Dunn'lisa, F.N.P. B35.4 Tinea corporis B35.3 Tinea pedis L40.0 Psoriasis vulgaris B35.1 Tinea unguium Office Visit 09/07/2020 4:15p Main Office Mickie Espinoza, F.N.P. B35.4 Tinea corporis B35.3 Tinea pedis L40.0 Psoriasis vulgaris R20.8 Other disturbances of skin s ensation Office Visit 08/21/2020 8:00a Main Office Mickie Dunn'lisa, F.N.P. L40.0 Psoriasis vulgaris L24.89 Irritant contact dermatitis due to other agents Office Visit 07/20/2020 2:00p Main Office Geni Saravia, HEEL TURNER-C D 22.5 Melanocytic nevi of trunk L81.4 Other melanin hyperpigmentat ion L82.1 Other seborrheic keratosis L40.0 Psoriasis vulgaris B37.2 Candidiasis of skin and nail Z12.83 Encounter for screening for malignant neoplasm of skin Assessments Date Code Description Provider 09/21/2020 B35.4 Tinea corporis Mickie Dunn'brarturo n, F.N.P. 09/21/2020 B35.3 Tinea pedis Mickie Dunn'chelsey n, F.N.P. 09/21/2020 L40.0 Psoriasis vulgaris Mickie Shaun'misael schmid, F.N.P. 09/21/2020 B35.1 Tinea unguium Mickie Dunn'chelsey n, F.N.P. 09/07/2020 B35.4 Tinea corporis Mickie O'brarturo n, F.N.P. 09/07/2020 B35.3 Tinea pedis Mickie O'brarturo n, F.N.P. 09/07/2020 L40.0 Psoriasis vulgaris Mickie O'misael schmid, F.N.P. 09/07/2020 R20.8 Other disturbances of skin sensa tion Mickie Dunn'lisa, F.N.P. 08/21/2020 L40.0 Psoriasis vulgaris Mickie Shaun'misael schmid, F.N.P. 08/21/2020 L24.89 Irritant contact dermatitis due to other agents Mickie Dunn'lisa, F.N.P. 07/20/2020 D22.5 Melanocytic nevi of trunk Geni Fu TONIA Saravia 07/20/2020 L81.4 Other melanin hyperpigmentation Geni Fu TONIA Saravia 07/20/2020 L82.1 Other seborrheic keratosis Erica Fu KEISHA Saravia-Maria E 07/20/2020 L40.0 Psoriasis vulgaris Geni Fu JOSÉ MIGUEL SnowP-Maria E 07/20/2020 B37.2 Candidiasis of skin and nail Sarika Fu TONIA Saravia 07/20/2020 Z12.83 Encounter for screening for shea gnant neoplasm of skin Geni Fu TONIA Saravia Plan of Treatment Future Appointment(s):* 10/23/2020 9:00 am - Mickie Espinoza, F.N.P. at Main Office * 07/24/2021 8:00 am - Geni Nickie TONIA Saravia at Main Office 09/21/2020 - Mickie Espinoza, F.N.P.* B35.4 Tinea corporis* Comments:* Improving. Continue Terbinafine 250 mg once daily x 10 weeksDiscussed that since he has nail involvement that he is going to have to take Terbinafine for the whole 12 weeks. Call with problems. * B35.3 Tinea pedis* Comments:* Discussed that even though the scraping was negative from the feet I think there is a overlap of fungal on his feet as well. So even if there is underlying psoriasis the fungus needs to be treated first. * L40.0 Psoriasis vulgaris* Comments:* See above * B35.1 Tinea unguium* Comments:* See above * Follow up:* 1 month - lab draw Functional Status Description No Information Available Mental Status Description No Information Available Referrals Description No Information Available
--- OUTSIDE RECORDS SUMMARY | 2020-11-30 06:57 | CCD | Continuity of Care Document ---
Author Author Manuel VICKERS N.P. Organization Unknown Address [address] [place] [address] Phone [phone] Care Team Providers Care Audio Visual Facilities Engineer Name Role Phone AUTM Unavailable Lilly Swain D.O. AUTM [phone] AUTM Unavailable Problems Description No Information Available Social History Type Date Description Comments Sex Unknown ETOH Use Rarely consumes alcohol Tobacco Use Start: 02/10/99 Patient is a current smoker, smo kes every day 1 PPD Recreational Drug Use Denies Drug Use Smoking Status Reviewed: 10/18/20 Patient is a current smoker, smokes every [...] Available Vital Signs Date Vital Result Comment 10/18/2020 7:15am BP Systolic 124 mmHg BP Diastolic 70 mmHg Heart Rate 71 /min O2 % BldC Oximetry 97 % Height 72 inches 6'0" Weight 251.12 lb BMI (Body Mass Index) 34.1 kg/m2 [place] Body Weight 178 lb Weight 113.910 kg BSA (Body Surface Area) 2.35 m2 09/06/2020 1:03pm BP Systolic 128 mmHg BP Diastolic 86 mmHg Body Temperature 98.4 F Height 72 inches 6'0" Weight 250.06 lb BMI (Body Mass Index) 33.9 kg/m2 [place] Body Weight 178 lb Weight 113.428 kg BSA (Body Surface Area) 2.34 m2 Results Description No Information Available Procedures Date Code Description Status 10/18/2020 76444 Tobacco Cessation Counseling Com pleted 10/18/2020 55041 Office/Outpatient Established Lo w MDM 20-29 Min Completed 09/06/2020 90339 Office/Outpatient New Low MDM 30 -44 Minutes Completed Medical Devices Description No Information Available Encounters Type Date Location Provider Dx Diagnosis Office Visit 10/18/2020 7:15a [facility]Th[facility] Maria E Vickers, N.P. G47.33 Obstructive sleep apnea (adult) (pediatr ic) F17.210 Nicotine dependence, cigaret dougie, uncomplicated Office Visit 09/06/2020 1:00p [facility] PATRICK Christianson Z12.11 Encounter for screening for malignant ne oplasm of colon G47.33 Obstructive sleep apnea (marija lt) (pediatric) Z68.33 Body mass index [BMI] 33.0-3 3.9, adult Assessments Date Code Description Provider 10/18/2020 G47.33 Obstructive sleep apnea (adult) (pediatric) Vanessa Vickers, N.P. 10/18/2020 F17.210 Nicotine dependence, cigarettes, uncomplicated Vanessa Vickers, N.P. 09/06/2020 Z12.11 Encounter for screening for shea gnant neoplasm of colon PATRICK Smith 09/06/2020 G47.33 Obstructive sleep apnea (adult) (pediatric) PATRICK Smith 09/06/2020 Z68.33 Body mass index [BMI] 33.0-33.9, adult PATRICK Smith Plan of Treatment Future Appointment(s):* 10/22/2021 9:15 am - Vanessa Vickers, N.P. at [facility] Pulmonary/Thoracic * 12/21/2020 9:00 am - PATRICK Smith at [facility] * 11/30/2020 8:15 am - Carlito Skinner M.D. at [facility] 10/18/2020 - Vanessa Vickers, N.P.* G47.33 Obstructive sleep apnea (adult) (pediatric) * F17.210 Nicotine dependence, cigarettes, uncomplicated * * Comments:* 1. No changes were made to the CPAP pressure at today's visit. 2. The patient is aware to call with any problems related to CPAP use, snoring through the mask or return of daytime sleepiness. * Follow up:* 1. Follow up in one year to reassess CPAP compliance or sooner should problems develop. Functional Status Functional Condition Comment Date Status Independent with all ADL's Activ e Independent with all IADL's Acti ve Mental Status Mental Condition Comment Date Status None Active Can understand information Activ e Referrals Refer to Reason for Referral Status Appt Date Carlito Skinner M.D. Closed 09/06/2020 [facility] [address] [place] [address] [phone]
[2020-11-30] MEDS ORDERED: LIDOCAINE 2% 100MG/5ML SDV (FOR ANES.) As Ordered ONE (08:11)
[2020-11-30] MEDS ORDERED: propofoL 200 MG/20 ML VIAL As Ordered ONE ×2 (08:11→08:20)
--- NOTE | 2020-11-30 08:39 | ROOR ---
Patient Name: Manuel Willis Procedure Date: 11/30/2020 8:09 AM Date of : 1975 Age: 45 Room: [facility] Gender: Male Note Status: Finalized Procedure: Colonoscopy Indications: Screening in patient at increased risk: Colorectal cancer in father 60 or older, This is the patient's first colonoscopy Providers: Carlito Skinner MD Referring MD: Lilly NEWTON DO Requesting Provider: Medicines: Monitored Anesthesia Care Complications: No immediate complications. Procedure: Pre-Anesthesia Assessment: - Prior to the procedure, a History and Physical was performed, and patient medications and allergies were reviewed. The patient is competent. The risks and benefits of the procedure and the sedation options and risks were discussed with the patient. All questions were answered and informed consent was obtained. Patient identification and proposed procedure were verified by the physician, the nurse and the java development manager in the procedure room. Mental Status Examination: alert and oriented. Airway Examination: normal oropharyngeal airway and neck mobility. Prophylactic Antibiotics: The patient does not require prophylactic antibiotics. Prior Anticoagulants: The patient has taken no previous anticoagulant or antiplatelet agents. ASA Grade Assessment: III - A patient with severe systemic disease. After reviewing the risks and benefits, the patient was deemed in satisfactory condition to undergo the procedure. The anesthesia plan was to use monitored anesthesia care (MAC). Immediately prior to administration of medications, the patient was re-assessed for adequacy to receive sedatives. The heart rate, respiratory rate, oxygen saturations, blood pressure, adequacy of pulmonary ventilation, and response to care were monitored throughout the procedure. The physical status of the patient was re-assessed after the procedure. The Colonoscope was introduced through the anus and advanced to the cecum, identified by appendiceal orifice and ileocecal valve. The colonoscopy was performed without difficulty. The patient tolerated the procedure well. The quality of the bowel preparation was excellent. Findings: The perianal and digital rectal examinations were normal. A 4 mm polyp was found at 50 cm proximal to the anus. The polyp was sessile. The polyp was removed with a jumbo cold forceps. Resection and retrieval were complete. Estimated blood loss was minimal. The exam was otherwise without abnormality. Impression: - One 4 mm polyp at 50 cm proximal to the anus, removed with a jumbo cold forceps. Resected and retrieved. - The examination was otherwise normal. Recommendation: - Discharge patient to home. - Resume previous diet. - Continue present medications. - Await pathology results. - If the pathology report reveals adenomatous tissue, then repeat the colonoscopy for surveillance in 5 years. Procedure Code(s): --- Professional --- 83375, Colonoscopy, flexible; with biopsy, single or multiple Diagnosis Code(s): --- Professional --- Z80.0, Family history of malignant neoplasm of digestive organs K63.5, Polyp of colon CPT copyright 2019 [employer]. All rights reserved. The codes documented in this report are preliminary and upon review may be revised to meet current compliance requirements. Carlito Skinner MD Carlito Skinner MD 11/30/2020 8:38:57 AM Electronically signed by Carlito Skinner MD Number of Addenda: 0 Note Initiated On: 11/30/2020 8:09 AM Estimated Blood Loss: Estimated blood loss was minimal.
[2020-11-30 08:57] VITALS: BP 143/78
== END 2020-11-30 09:00 | disposition home or self-care (01) ==
LOC: M OPP 06:53
PROVIDERS: ATTEND Surgery
DX: Z12.11 Encounter for screening for malignant neoplasm of colon (principal); Z80.0 Family history of malignant neoplasm of digestive organs; D12.6 Benign neoplasm of colon, unspecified; Z79.899 Other long term (current) drug therapy; F17.210 Nicotine dependence, cigarettes, uncomplicated

== ENCOUNTER → 2021-09-04 | Outpatient (CLI) | payer OTHER ==
[~2021-09-04] MED LIST changes: -NS 1,000 ML IV ONE
== END ==
LOC: M PLAIMG 14:46
PROVIDERS: ATTEND Nurse Practitioner Adult Health
DX: M25.551 Pain in right hip (principal)

== ENCOUNTER → 2021-10-30 | Outpatient (CLI) | payer OTHER | LOC: M SOG 10:25 | PROVIDERS: ATTEND Orthopaedic Surgery | DX: M25.511 Pain in right shoulder (principal); M25.512 Pain in left shoulder; M25.561 Pain in right knee; M25.562 Pain in left knee ==

== ENCOUNTER → 2022-03-25 | Outpatient (CLI) | payer BC | LOC: M RAD 11:30 | PROVIDERS: ATTEND Nurse Practitioner Adult Health | DX: M79.661 Pain in right lower leg (principal) ==

== ENCOUNTER → 2022-03-29 | Outpatient (CLI) | payer BC | LOC: M RAD 07:08 | PROVIDERS: ATTEND Nurse Practitioner Adult Health | DX: R60.9 Edema, unspecified (principal); M79.661 Pain in right lower leg; M51.26 Other intervertebral disc displacement, lumbar region; M51.27 Other intervertebral disc displacement, lumbosacral region ==

== ENCOUNTER → 2022-05-02 | Outpatient (CLI) | payer BC | LOC: M RAD 06:51 | PROVIDERS: ATTEND Physician Assistant Surgical | DX: M79.604 Pain in right leg (principal); M79.89 Other specified soft tissue disorders ==

== ENCOUNTER → 2023-05-29 | Outpatient (CLI) | payer BC ==
[~2023-05-29] MED LIST changes: +ISOVUE-370 76% 100ML VIAL ONE
== END ==
LOC: M PLAIMG 14:01
PROVIDERS: ATTEND Physician Assistant
DX: R09.1 Pleurisy (principal)
CPT/HCPCS: 71260; Q9967

== ENCOUNTER → 2024-06-28 | Outpatient (CLI) | payer BC ==
[~2024-06-28] MED LIST changes: -ISOVUE-370 76% 100ML VIAL ONE
[2024-06-28 14:46] LABS: C REACTIVE PROTEIN QUANTITATIV < 0.50 MG/DL (<1.0); MALB URINE SIEMENS < 3.0 MG/L; TESTOSTERONE 351 NG/DL (241-827)
[2024-06-28 14:49] LABS: ALBUMIN 4.5 G/DL (3.2-5.2); ALKALINE PHOSPHATASE 70 U/L (40-129); ALT/SGPT 35 U/L (7.0-40); AST/SGOT 14 U/L (<34); BILIRUBIN,TOTAL 0.5 MG/DL (0.3-1.2); BLOOD UREA NITROGEN 23 MG/DL (9-23); CALCIUM LEVEL 10.4 MG/DL (8.5-10.1); CARBON DIOXIDE LEVEL 27 MMOL/L (20-31); CHLORIDE LEVEL 105 MMOL/L (98-107); CHOLESTEROL LEVEL 204 MG/DL (<200); CHOLESTEROL RISK RATIO 4.26 (<5); GLOMERULAR FILTRATION RATE > 90.0 (>60); GLUCOSE, FASTING 80 MG/DL (60-100); HDL CHOLESTEROL 47.8 MG/DL (>40); LDL CHOLESTEROL 133.6 MG/DL (<100); NON-HDL-C 156.2 MG/DL; POTASSIUM SERUM 5.3 MMOL/L (3.5-5.1); SODIUM LEVEL 139 MMOL/L (136-145); TOTAL PROTEIN 7.7 G/DL (5.7-8.2); TRIGLYCERIDES LEVEL 113 MG/DL (<150)
[2024-06-28 15:26] LABS: HEMOGLOBIN A1c 5.4 % (4.0-6.0)
== END ==
LOC: M PLALAB 11:49
PROVIDERS: ATTEND Physician Assistant
DX: E29.1 Testicular hypofunction (principal)